=== PATIENT | male | born 1960 | race Caucasian/White ===

== ENCOUNTER 2023-07-13 09:18 | Observation (INO) | payer BC, SELFPAY ==
[2023-07-13] VITALS (7 sets, daily range): BP systolic 134–170; BP diastolic 86–96; PULSE 87–117; RESP 16–22; TEMP 36.1–36.6; O2SAT 96–100; BMI 24.4
--- NOTE | ~2023-07-13 | US_ITS ---
EXAMINATION: US paracentesis abd w/image DATE: 07/14/2023 11:26 INDICATION: Ascites. TECHNIQUE: The procedure and its risks, benefits, and alternatives were discussed with the patient. P otential risks discussed included bleeding and infection. The skin was prepped and draped in sterile fashion. 1% lidocaine was used for local anesthesia. Under ultrasound guidance, a 5 Fr catheter with trochar was advanced into the ascites in the left lower quadrant. Fluid was aspirated. The catheter w as removed, and a dressing was applied. There were no immediate complications. FINDINGS: Ultrasound images demonstrate ascites and the catheter within the fluid. IMPRESSION: 1. Successful ultrasound-guided paracentesis yielding 2150 mL of cloudy red fluid. Reviewed, dictated and finalized at location A. TATION TECHNICIAN IMPRESSION: 1. Successful ultrasound-guided paracentesis yielding 2150 mL of cloudy red fl uid.
--- NOTE | ~2023-07-13 | CT_ITS ---
EXAMINATION: CT abdomen pelvis w con DATE: 07/13/2023 10:25 INDICATION: Lower abdominal pain, bloating, constipation TECHNIQUE: Computed tomography (CT) of the abdomen and pelvis was performed with 100 CC Omnipaque 350 intravenous contrast. Automated exposure control and iterative reconstruction technique were employe d. Exam dose: 523.36 mGy-cm total exam DLP. COMPARISON: None. FINDINGS: Bilateral hyperinflation consistent with COPD. Normal heart size. No pericardial or pleural effusion. There is prominent ascites. Peritoneal metastases are noted in addition to omental caking consistent with omental metastases. There is a very large mass in the sigmoid colon with some colonic stricture, with a prominent amount of fecal material in the colon proximal to this area. The findings are most consistent with sigmoid c olon cancer with peritoneal and omental metastases and malignant ascites. There are some impressions upon the liver likely due to peritoneal implants. No apparent hepatic mass lesion is evident. The gallbladder is present. No bile duct or pancreatic duct dilatation. No pancreatic mass lesion or calcification. Normal splenic size. Normal morphology of the adrenal glands. Small lower pole anterior right renal cyst. The kidneys are otherwise unremarkable. No urinary tract calculus or hydroureteronephrosis. His atherosclerotic calcification but normal caliber of the abdominal aorta. No periaortic or aortoca facundo or pelvic lymphadenopathy is noted. IMPRESSION: Prominent sigmoid colon mass stricture suggestive of sigmoid colon cancer, with peritone al and omental metastases and prominent ascites Dr. Meyers telephoned the report on July 13, 2023 at 1100 hours to emergency room Physician Tony Cervantes Reviewed, dictated and finalized at Location A. Reviewed, dictated and finalized at location B. RAL HANDLING SUPERVISOR IMPRESSION: Prominent sigmoid colon mass stricture suggestive of sigmoid colon cancer, with peritoneal and omental metastases and prominent ascites Dr. Meyers telephoned the report on July 13, 2023 at 1100 hours to emergency room Physician Assistant Cervantes
[2023-07-13 09:40] LABS: Basophils Percent Auto 0.3 % (0.2-1.2); Eosinophils Percent Auto 0.5 % (0-4.4); Hematocrit 36.2 % (42.0-52.0); Hemoglobin 11.4 g/dL (14.0-18.0); Immature Granulocyte Absolute 0.02 K/mm3 (0.00-0.031); Immature Granulocyte Percent A 0.3 % (0-0.5); Lymphocytes Absolute Auto 1.09 K/mm3 (0.9-3.2); Lymphocytes Percent Auto 16.4 % (18.3-44.2); Mean Corpuscular HGB Conc 31.5 g/dl (32-36); Mean Corpuscular Hemoglobin 25.6 pg (26-34); Mean Corpuscular Volume 81.3 fl (80-100); Mean Platelet Volume 8.2 fl (7.4-10.4); Monocytes Absolute Auto 0.5 K/mm3 (0.1-0.6); Monocytes Percent Auto 7.2 % (2.6-8.5); Neutrophils Percent Auto 75.3 % (45.5-73.1); Platelet Count Result 410 k/mm3 (150-375); Red Blood Count 4.45 M/mm3 (4.6-6.20); Red Cell Distribution Width 15.6 % (11.5-14.5); White Blood Count 6.6 K/mm3 (4.5-10.0)
[2023-07-13 09:54] LABS: Alanine Aminotransferase 16 U/L (6-50); Albumin Level 3.7 g/dL (3.5-5.1); Alkaline Phosphatase 70 U/L (38-126); Anion Gap 7 mmol/L (8-16); Aspartate Amino Transferase 22 U/L (17-59); Bilirubin,Total 0.3 mg/dL (0.2-1.3); Blood Urea Nitrogen 7 mg/dL (9-20); Calcium 9.1 mg/dL (8.4-10.2); Carbon Dioxide 28 mmol/L (22-30); Chloride 100 mmol/L (98-107); Estimated CRCL calculation 105 ml/min; Estimated Glomerular Filt Rate > 60; Glucose 175 mg/dL (65-110); Lipase 53 U/L (23-300); Potassium 3.1 mmol/L (3.4-5.0); Sodium 135 mmol/L (137-145)
--- NOTE | 2023-07-13 10:00 | ED.ABDPAIN ---
HPI - Abdominal Pain General Chief Complaint: Abdominal Pain <LAUREL Andrews Last Filed: 07/13/23 13:15> Stated Complaint: abd pain <LAUREL Andrews Last Filed: 07/13/23 13:15> Time Seen by Provider: 07/13/23 09:34 <Yolande Soliz PA-C - Last Filed: 07/13/23 13:15> Source: patient <LAUREL Andrews Last Filed: 07/13/23 13:15> Mode of arrival: ambulatory <LAUREL Andrews Last Filed: 07/13/23 13:15> Limitations: no limitations <LAUREL Andrews Last Filed: 07/13/23 13:15> History of Present Illness HPI narrative: Patient is a 63-year-old male who presents the ED with report of lower abdominal pain. Patient reports pain has been ongoing and intermittent over the last 1 week, became significantly worse last night. Pain present throughout his lower abdomen. No significant aggravating or alleviating factors. He has never had pain like this before. States abdomen began feeling bloated and distended yesterday. Patient denies nausea, vomiting, fevers, urinary complaints. He does admit to recent bowel changes, reporting small bouts of diarrhea/thin stools over the last couple of days, but overall feels constipated. Denies rectal bleeding, melena. Patient has never had a colonoscopy. Denies previous history of diverticulitis. <Yolande Soliz PA-C - Last Filed: 07/13/23 13:15> Related Data Home Medications: Home Medications Medication Instructions Recorded Confirmed B-complex with vitamin C 1 tablet PO DAILY 07/13/23 07/13/23 <LAUREL Andrews Last Filed: 07/13/23 13:15> Allergies/Adverse Reactions: Allergies Allergy/AdvReac Type Severity Reaction Status Date / Time No Known Allergies Allergy Verified 07/13/23 09:22 <LAUREL Andrews Last Filed: 07/13/23 13:15> Review of Systems Review of Systems: CONSTITUTIONAL: Denies fever, chills, or sweats. GASTROINTESTINAL: See HPI. GENITOURINARY: Denies dysuria or hematuria. <Yolande Soliz PA-C - Last Filed: 07/13/23 13:15> All systems reviewed & are unremarkable except as noted in HPI and below <Yolande Soliz PA-C - Last Filed: 07/13/23 13:15> PMFSH Past Medical History Medical History: Medical History (Updated 07/13/23 @ 16:49 by Jaylen Larose MD) Bowel habit changes Lower abdominal pain No pertinent past medical history <LAUREL Andrews Last Filed: 07/13/23 13:15> Surgical History Surgical History: Surgical History History of inguinal hernia repair As an infant <Yolande Soliz PA-C - Last Filed: 07/13/23 13:15> Social History Social History: Social History Social History: Surrogate medical decision maker: Orin Christensen, niece. Code status: Full code. Smoking packs per day: 0.25 Smoking cigarettes per day: 5.0 Smoking status: Light tobacco smoker Tobacco type: cigarettes Alcohol intake: never Substance use: never Do You Feel Safe in your Home?: Yes Lack of Transportation: No Lack of Food: Never True Current Housing: I Have Housing Concerned About Future Housing: No Difficulty Paying Gas/Electric Bills: No Difficulty Paying for Meds: No Currently Unemployed: No Education: High School Diploma/GED Difficulty w/ Childcare or Family Care: No Spiritual care concerns: No <LAUREL Andrews Last Filed: 07/13/23 13:15> Exam Narrative: GENERAL: Appears older than stated age appearing, well-nourished, non-toxic, in no acute distress. HEAD: Normocephalic, atraumatic. RESPIRATORY: Airway patent, respirations nonlabored. Clear to auscultation bilaterally, no rales, rhonchi, wheezing. CARDIOVASCULAR: Tachycardic with regular rhythm without murmurs, rubs, or gallops. ABDOMINAL: Abdo
[2023-07-13] MEDS: SODIUM CHLORIDE 0.9% IV 1,000 ML 999 ML IV CONT (10:04)
[2023-07-13] MEDS: POTASSIUM CHLORIDE 20 MEQ ER TABLET 40 MEQ PO (10:21)
[2023-07-13 10:49] LABS: Lactic Acid Reflex 1.8 mmol/L (0.7-2.0); Magnesium 1.9 mg/dL (1.6-2.3)
[2023-07-13 10:54] LABS: Appearance Urine Clear (Clear); Bilirubin Urine Negative (Negative); Blood Urine Negative (Negative); Color Urine Yellow (Yellow); Glucose Urine UA Negative (Negative); Ketones Urine Negative (Negative); Leukocyte Esterase Ur Negative LEU/UL (Negative); Nitrate Urine Negative (Negative); Protein Urine Negative (Negative); Specific Grav Ur 1.008 (1.001-1.035); Urobilinogen Urine 0.2 mg/dL (<2.0)
[2023-07-13 10:58] LABS: Add Urine Microscopic? NO
--- NOTE | 2023-07-13 12:11 | PC.NURSE ---
Cari from [facility] called informing this RN anticipating time of procedure approx 1500
--- NOTE | 2023-07-13 13:03 | PM.IMHP ---
H&P: HPI History of Present Illness Date/Time: 07/13/23 13:05 Chief Complaint: Abdominal pain. Narrative: This is a pleasant 63-year-old male with no reported medical history who presented to the emergency department for evaluation of abdominal. The patient provides the following history. He reports lower abdominal pain for about one weeks duration, worse since last night. He has bloating and is constipated though the last few days he has passed loose stools but in small amounts. He denies nausea, vomiting, rectal bleeding, dysuria, hematuria, belching, indigestion, chest pain, pleuritic pain, palpitations, shortness of breath, edema, and fevers. On arrival to triage he was afebrile with stable blood pressures. He has lost maybe 12 lb in the last year. The weight has come off slowly and has not been recent or drastic. He was tachycardic on arrival but that has improved. Labs were significant for a hemoglobin of 11.4 sodium 135, potassium 3.1, and a glucose of 175. Urinalysis was unremarkable. CT scan of the abdomen and pelvis showed a prominent sigmoid colon mass with stricture suggestive of colon cancer with peritoneal and omental metastases and prominent ascites. The patient has never had a colonoscopy. No known family history of colon cancer. GI, surgery, and Oncology specialties have been consulted and he is being admitted in this setting. Review of Systems Review of Systems: Twelve systems were reviewed and are negative except for as per HPI. [facility] Past Medical History Medical History (Updated 07/13/23 @ 21:58 by Cielo Contreras PA-C) No pertinent past medical history Surgical History Surgical History History of inguinal hernia repair As an infant Social History Social History (Updated 07/13/23 @ 21:59 by Cielo Contreras PA-C) Social History: Surrogate medical decision maker: Orin Christensen, niece. Code status: Full code. 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 Spiritual care concerns: No Meds Home Medications and Allergies Home Medications Medication Instructions Recorded Confirmed Type B-complex with vitamin C 1 tablet PO DAILY 07/13/23 07/13/23 History Allergies Allergy/AdvReac Type Severity Reaction Status Date / Time No Known Allergies Allergy Verified 07/13/23 09:22 Vital Signs Vital Signs - 24 hr 07/13/23 09:20 07/13/23 09:35 07/13/23 09:45 Temperature 97 F L Pulse Rate 114 H 113 H 116 H Respiratory Rate 16 16 22 H Blood Pressure 170/86 H Pulse Oximetry 100 100 99 07/13/23 10:00 07/13/23 11:24 Temperature Pulse Rate 117 H 105 H Respiratory Rate 18 20 Blood Pressure 134/89 Pulse Oximetry 100 100 Exam Narrative: General: Well-developed, nontoxic-appearing male sitting up beside the bed. Weight: 84 kg. BMI: 24.4. HEENT: PERRL, EOMI. Sclera anicteric. Oral mucosa moist. Neck: Supple. Respiratory: Lungs are clear to auscultation bilaterally. Cardiovascular: Regular rate and rhythm with S1-S2. Gastrointestinal: Abdomen is slightly distended with positive and occasional high-pitched bowel sounds. Tympanic to percussion. no tenderness to palpation. Rectal exam not performed. Skin: Warm and dry. No rash or lesions on limited exam. Extremities: No cyanosis, clubbing, or edema. Radial and pedal pulses intact. Neurological: Alert. Cranial n
[2023-07-13] MEDS: SODIUM CHLORIDE 0.9% IV 1,000 ML 100 ML IV CONT (14:09)
--- NOTE | 2023-07-13 14:53 | PM.CNGS ---
Assessment and Plan Assessment and plan (1) Colonic mass: Code(s): K63.89 - Other specified diseases of intestine Status: Acute Assessment and Plan: Patient presents with likely metastatic colon cancer with CT evidence of a sigmoid colon mass with stricturing and evidence of peritoneal and omental metastases with malignant ascites. He does not appear to be completely obstructed and is still having bowel function. Would agree with GI consultation to see if he can tolerate a bowel prep and hopefully get a colonoscopy. Oncology has also been consulted. Given the metastatic spread noted on CT with likely peritoneal carcinomatosis, surgery would be reserved for perforation or a high-grade obstruction. Discussed with the patient that if he developed signs of perforation or complete obstruction, then we would consider a diverting colostomy, but this would delay initiation of chemotherapy. Paracentesis has been ordered and planned for tomorrow. Will await GI recommendations and continue to follow along closely. 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 Cavazos. History of Present Illness Consult details Consult date: 07/13/23 Reason for consult: other (Sigmoid mass with stricture and CT evidence of metastasis) Requesting physician: Yolande Soliz PA-C Narrative: This is a 63-year-old man who presented to the ER with complaints of bloating and abdominal pain. He admits to not seeing a medical provider in about 40 years. He has never had a colonoscopy. He reports a change in his bowels a few weeks ago. He began having diarrhea and noticed only small loose or liquid stools. This was intermittent, and recently became more persistent. He also felt his stools decreased in size over time. The last 2 days, he developed significant bloating and abdominal distension. He reports discomfort due to the bloating, but also noticed some left lower quadrant abdominal pain. He admits to having this pain intermittently for months, but this was mild. This pain became more persistent over the last 2 days. He denies any nausea or vomiting. He discussed his symptoms with his niece, who is a nurse, who recommended he go to the ER for evaluation. Labs in the ER were significant for hemoglobin 11.4, hematocrit 36.2, potassium 3.1, glucose 175. CT scan of the abdomen and pelvis showed a prominent sigmoid colon mass with stricture suggestive of sigmoid colon cancer with peritoneal and omental metastasis and prominent ascites. He has been made NPO. He was admitted to the hospitalist service. Paracentesis was ordered, which per nursing this will not be done until tomorrow. Our service has been consulted for the sigmoid colon mass. GI and Oncology have also been consulted. He is now seen on the medical floor. He reports having some left lower quadrant abdominal pain that is very mild. He feels less bloated today than yesterday. He has not eaten since yesterday. He did have a small loose bowel movement early this morning and has passed some flatus today. With further questioning, he admits to having about a 12 lb unintentional weight loss in the past 6 months to a year. He has notice some fatigue in the past week as well. Denies any blood in his stools. Review of Systems Review of Systems: All systems
--- NOTE | 2023-07-13 16:44 | WPDGICN ---
Assessment and Plan Assessment and plan (1) Colonic mass: Code(s): K63.89 - Other specified diseases of intestine Status: Acute Assessment and Plan: unfortunately it seems he has metastatic colon cancer he is agreeable to have colonoscopy, will give bowel prep- he may not tolerate all prep I do not think that he is completely obstructed as he is still having bowel function and denies nausea. Will assess tomorrow degree of stricture, we can always proceed with stent only if significant stricture. 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 is a 63 year old male with no major chronic medical problems however has not seen a medical provider for years or ever had a colonoscopy. For about a month noted change in bowel habits with more frequent loose stools than usual but last few days noted even less amount of stool, also has been having more bloating for last 2 days after eating, denies nausea. Also noticed some left lower quadrant abdominal pain.? He admits to having this pain intermittently for months, but this was mild, lost about 15 lb last few months.?Labs in the ER were significant for hemoglobin 11.4, hematocrit 36.2, potassium 3.1, glucose 175.? CT scan of the abdomen and pelvis showed a prominent sigmoid colon mass with stricture suggestive of sigmoid colon cancer with peritoneal and omental metastasis and prominent ascites. Review of Systems Constitutional: Comments: weight loss Eyes: Eyes: Denies blurry vision ENT: Reports Normal hearing present Cardiovascular: Cardiovascular: Denies chest pain Respiratory: Respiratory: Denies cough Gastrointestinal: Gastrointestinal: Reports abdominal pain Genitourinary: Genitourinary: Denies urinary incontinence Musculoskeletal: Musculoskeletal: Denies neck pain Integumentary/Breasts: Skin/Breast: Denies rash Neurologic: Denies Abnormal speech present Psychiatric: Psychiatric: Denies behavioral changes [facility] Past Medical History Medical History (Updated 07/13/23 @ 16:49 by Jaylen Larose MD) Bowel habit changes Lower abdominal pain No pertinent past medical history Surgical History Surgical History History of inguinal hernia repair As an Social History Social History Social History: Surrogate medical decision maker: Orin Christensen, niece. Code status: Full code. Smoking packs per day: 0.25 Smoking cigarettes per day: 5.0 Smoking status: Light tobacco smoker Tobacco type: cigarettes Alcohol intake: never Substance use: never Do You Feel Safe in your Home?: Yes Lack of Transportation: No Lack of Food: Never True Current Housing: I Have Housing Concerned About Future Housing: No Difficulty Paying Gas/Electric Bills: No Difficulty Paying for Meds: No Currently Unemployed: No Education: High Sc
[2023-07-13] MEDS: BISACODYL 5 MG TABLET EC 20 MG PO (18:19)
[2023-07-13] MEDS: polyethylene glycoL 3350 238 GM BOTTLE PO (18:19)
--- NOTE | 2023-07-13 22:30 | ADMGEN ---
This patient, Rudy Mejia Jr., was admitted to Medical Room 254-01 @ approx. 1235 on 07/13/23. Patient/family oriented to hospital policies and general routines including ID bracelet, bed and alarms, visiting hours, pain management, procedures, bathroom and other care routines, personal items, smoking policy, room service/diet, and visiting hours. Information on how to activate the Rapid Response Team has been discussed. Patient/Family are encouraged to report perceived risks to care and to ask questions if they do not understand what they are told or what they should do.
[2023-07-14] VITALS (7 sets, daily range): BP systolic 94–141; BP diastolic 68–94; PULSE 74–87; RESP 18–26; TEMP 36.4–36.8; O2SAT 97–100
[2023-07-14] MEDS: MAGNESIUM CITRATE 300 ML BTL PO (05:10)
[2023-07-14 06:23] LABS: Hematocrit 36.4 % (42.0-52.0); Hemoglobin 11.4 g/dL (14.0-18.0); Mean Corpuscular HGB Conc 31.3 g/dl (32-36); Mean Corpuscular Hemoglobin 25.3 pg (26-34); Mean Corpuscular Volume 80.9 fl (80-100); Mean Platelet Volume 8.3 fl (7.4-10.4); Platelet Count Result 413 k/mm3 (150-375); Red Cell Distribution Width 15.7 % (11.5-14.5); White Blood Count 5.3 K/mm3 (4.5-10.0)
[2023-07-14 06:38] LABS: Anion Gap 8 mmol/L (8-16); Blood Urea Nitrogen 5 mg/dL (9-20); Calcium 9.3 mg/dL (8.4-10.2); Carbon Dioxide 25 mmol/L (22-30); Chloride 104 mmol/L (98-107); Estimated CRCL calculation 121 ml/min; Estimated Glomerular Filt Rate > 60; Glucose 105 mg/dL (65-110); Magnesium 1.9 mg/dL (1.6-2.3); Potassium 3.7 mmol/L (3.4-5.0); Sodium 137 mmol/L (137-145)
[2023-07-14 06:55] LABS: Iron 38 ug/dL (49-181)
[2023-07-14 07:04] LABS: Percent Iron Saturation 16 % (20-50)
[2023-07-14 07:05] LABS: Carcinoembryonic Antigen 22.2 ng/mL (0.0-3.0)
[2023-07-14 07:47] LABS: Vitamin B12 > 1000.0 pg/mL (239-931)
--- NOTE | 2023-07-14 09:08 | PDONCCN ---
HPI - Date of Consult Date/Time: 07/14/23 09:08 Requesting Physician: LINDA Doshi Primary Care Provider: INSTRUMENT ADJUSTER PHYSICIAN - Consult Narrative Reason for consult: Colon Cancer Narrative: Rudy Mejia Jr. is a 63 year old male with no past medical history. He states he has not gone to the doctor in over 40 years. He presented to the ED with abdominal distention, bloating, and umbilicus protrusion. He has been having lower abdominal discomfort and a month of diarrhea. Thursday he has the worst discomfort and presented to the ED. He has never had a colonoscopy. He denies any blood in his stool. Denies nausea. States he has a good appetite. He has lost 12lb in the last year but his weight typically fluctuates from summer to winter based on activity level. He smokes 1/2 pack a day. He has a distant history of heavy alcohol use. He denies any previous history of malignancy and denies immediate family history of cancer. He reports some shortness of breath. He endorses a heavy meat and potato diet. CT scan shows sigmoid colon mass w/ stricture. GI and surgery are following. He should be receiving a colonoscopy w/ a biopsy today. Review of Systems - Review of Systems All systems reviewed & are unremarkable except as noted in HPI and bel - Neurologic Reports system reviewed and no additional complaints, except as documented, Reports hearing normal, Denies abnormal speech, Denies behavioral changes [facility] Medical History: Medical History (Last Updated 07/13/23 @ 21:58 by Cielo Contreras PA-C) No pertinent past medical history Surgical History: Surgical History (Last Reviewed 07/13/23 @ 21:58 by Cielo Contreras PA-C) History of inguinal hernia repair As an infant - Social History Social History: Social History (Last Updated 07/13/23 @ 21:59 by Cielo Contreras PA-C) Alcohol Use: Alcohol intake: never Substance Use: Substance use: never Others: Spiritual care concerns: No Smoking Status: Smoking status: Light tobacco smoker Tobacco type: cigarettes Smoking Pack-years: Smoking packs per day: 0.25 Smoking cigarettes per day: 5.0 Social Determinants of Health: Do You Feel Safe in your Home?: Yes Has the Lack of Transportation Kept You From Medical Appointments or From Getting Medications?: No Within the Past 12 Months, Were You Worried Whether Your Food Would Run Out Before You Got Money to Buy More?: Never True What is Your Housing Situation Today?: I Have Housing Are You Worried That in the Next 2 Months, You May Not Have Your Own Housing to Live In?: No Do You Have Trouble Paying Your Heating Or Electricity Bill?: No Do You Have Trouble Paying For Medicines?: No Are You Currently Unemployed and Looking for Work?: No Highest Level of Education Completed: High School Diploma/GED Do You Have Trouble With Childcare or the Care of a Family Member?: No Exam - General Pt is sitting in the chair, comfortably, in no acute distress - Vital Signs Vital Signs - 24 hr 07/13/23 09:20 07/13/23 09:35 07/13/23 09:45 Temperature 36.1 C L Pulse Rate 114 H 113 H 116 H Respiratory Rate 16 16 22 H Blood Pressure 170/86 H Pulse Oximetry 100 100 99 Oxygen Delivery 07/13/23 10:00 07/13/23 11:24 07/13/23 14:00 Temperature Pulse Rate 117 H 105 H Respiratory Rate 18 20 Blood Pressure 134/89 Pulse Oximetry 100 100 Oxygen Delivery Room Air 07/13/23 12:35 07/13/23 19:31 07/13/23 20:44 Temperature 36.6 C 36.4 C L Pulse Rate 104 H 87 Respiratory Rate 20 18 Blood Pressure 151/96 H 140/95 H Pulse Oximetry 100 96 Oxygen Delivery Room Air 07/14/23 03:57 Temperature 36.4 C L Pulse Rate 82 Respiratory Rate 18 Blood Pressure 141/94 H Pulse Oximetry 97 Oxygen Delivery - Exam HEENT: PERRLA, mucous membranes moist and pink Neck: supple. No: lymphadenopathy Lungs: clear to auscultati
[2023-07-14 09:09] LABS: INR 1.1; Partial Thromboplastin Time 33.8 SECONDS (22.3-36.8); Prothrombin Time 14.2 Seconds (11.1-14.7)
--- NOTE | 2023-07-14 10:42 | PM.IMPN ---
Progress Note: A&P Assessment and Plan (1) Colonic mass: Code(s): K63.89 - Other specified diseases of intestine Status: Acute Assessment and Plan: As evidenced by CT scan of abdomen. There is concern for Metastasis to the peritoneum and omentum. There is omental caking identified w/very large mass in sigmoid colon causing some colonic stricture. Pt has been consulted on by Oncology and they will follow up with pt as outpt to go over results of biopsies and to develop further POC. Colonoscopy and Paracentesis scheduled for today for further evaluation. (2) Colonic stricture: Code(s): K56.699 - Other intestinal obstruction unspecified as to partial versus complete obstruction Status: Acute Assessment and Plan: Secondary to #1. general surgery did evaluate and will be following should the pt require a diverting colostomy or tumor debulking. (3) Ascites: Qualifiers: Ascites type: other type Qualified Code(s): R18.8 - Other ascites Code(s): R18.8 - Other ascites Status: Acute Assessment and Plan: Secondary to metastatic disease. Paracentesis to be performed today. (4) Hypokalemia: Code(s): E87.6 - Hypokalemia Status: Resolved Assessment and Plan: Potassium this AM is normal at 3.7. (5) Hyperglycemia: Code(s): R73.9 - Hyperglycemia, unspecified Status: Resolved Assessment and Plan: Fasting glucose this AM is 105 A1C is 6.0. (6) Tachycardia: Code(s): R00.0 - Tachycardia, unspecified Status: Resolved Assessment and Plan: Suspect due to mild dehydration. Now resolved. Time Spent With Patient Time with patient: 25 - 35 minutes Subjective Date/time seen: 07/14/23 0840 Interval history: This pt was examined this AM at the bedside in interval assessment after being admitted to the hospital with concerns of a metastatic process in the colon that was visualized on CT scan when he presented to the ER with abdominal pain and bloating. This pt has been without any medical care for 40+ years as he stated he was never sick and he did not receive routine medical screening and physicals. He is a residential smoker and denies any other acute or chronic history. He was admitted and GI as well as General Surgery and Oncology have consulted. Pt. will have colonoscopy today by GI to further assess the mass and to obtain a biopsy of the area, and General Sgy advised that they would only be available for intervention if the pt requires a diverting colostomy, de-bulking, etc. Oncology will follow up with pt in the outpt setting to review the results of the pathology and continue care. Pt. denies any pain for me this AM and he denies any other acute complaints such as Dyspnea, CP, N/V/D and states to me that he feels fine and everyone else acts like I'm dying. Pt's CEA has returned elevated at 22.2. CBC and CMP are unremarkable. He is having Colonoscopy today as well as Paracentesis. Review of Systems Review of Systems: All systems reviewed & are unremarkable except as noted in HPI and below Exam Narrative: General: Well-developed, nontoxic-appearing male sitting up beside the bed in no acute distress at this time. HEENT: PERRL, EOMI. Sclera anicteric. Dry oral mucosa. Neck: Supple. FROM present. Respiratory: Lungs are clear to auscultation bilaterally with a prolonged expiratory phase present. Cardiovascular: Regular rate and rhythm with S1-S2. No m,r,g,h or displacement of PMI. Gastrointestinal: Abdomen is slightly distended with positive bowel sounds. No TTP Skin: Warm and dry. No rash or lesions on limited exam. Extremities: No cyanosis, clubbing, or edema. Radial and pedal pulses intact. Neurological: Alert. Cranial nerves 2-12 are grossly intact. No gross focal deficits Psychiatric: Cooperative but defensive in belief that he has Cancer. Objective Data Vital Signs Vital Signs: Vital S
[2023-07-14 12:43] LABS: Source Peritoneal Fluid Peritoneal Fluid
[2023-07-14 12:44] LABS: Appearance Peritoneal Fluid Cloudy (Clear); Color Peritoneal Fluid Brown (Colorless); Eosinophils Peritoneal Fluid 2 %; Lymphocytes Peritoneal Fluid 66 %; Macrophages Peritoneal Fluid 23 %; Monocytes Peritoneal Fluid 5 %; Neutrophils Peritoneal Fluid 4 % (0-25); Nucleated Cells Peritoneal Flu 934 /uL (0-500); RBC Peritoneal Fluid 6000 /uL (0-100000)
[2023-07-14] MEDS: LACTATED RINGERS 1,000 ML 150 ML IV CONT (13:00)
--- NOTE | 2023-07-14 13:02 | WPDANESEPPF ---
Anes - Initial Pre Proc Eval Procedure: Operation Date: 07/14/23 14:00 Proposed Procedures p Colonoscopy - Jaylen Larose MD Date/Time: 07/14/23 13:02 Surgeon: LINDA Doshi Pre Op Diagnosis: Colon Mass W Stricture/Abd Ascites/Hypokalemia Patient Data Age: 63 Gender: M Height: 1.85 m Weight: 81.4 kg Last Vital Signs Temp 97.5 F L 07/14/23 12:40 Pulse 87 07/14/23 12:40 Resp 18 07/14/23 12:40 BP 141/86 H 07/14/23 12:40 Pulse Ox 98 07/14/23 12:40 O2 Del Method Room Air 07/14/23 12:40 Allergies Allergy/AdvReac Type Severity Reaction Status Date / Time No Known Allergies Allergy Verified 07/14/23 12:51 Home Medications Medication Instructions Recorded Confirmed Type B-complex with vitamin C 1 tablet PO DAILY 07/13/23 07/14/23 History Laboratory Tests 07/13/23 07/14/23 07/14/23 12:11 05:46 05:47 WBC 5.3 K/mm3 (4.5-10.0) RBC 4.50 L M/mm3 (4.6-6.20) Hgb 11.4 L g/dL (14.0-18.0) Hct 36.4 L % (42.0-52.0) MCV 80.9 fl (80-100) MCH 25.3 L pg (26-34) MCHC 31.3 L g/dl (32-36) RDW 15.7 H % (11.5-14.5) Plt Count 413 H k/mm3 (150-375) MPV 8.3 fl (7.4-10.4) PT INR APTT Sodium 137 mmol/L (137-145) Potassium 3.7 mmol/L (3.4-5.0) Chloride 104 mmol/L (98-107) Carbon Dioxide 25 mmol/L (22-30) Anion Gap 8 mmol/L (8-16) BUN 5 L mg/dL (9-20) Creatinine 0.60 L mg/dL (0.7-1.3) Estim Creat Clear Calc 121 ml/min Estimated GFR > 60 (59 - ) Glucose 105 mg/dL (65-110) Hemoglobin A1c 6.0 H % (<5.7) Calcium 9.3 mg/dL (8.4-10.2) Magnesium 1.9 mg/dL (1.6-2.3) Iron 38 L ug/dL (49-181) TIBC 245 L ug/dL (265-497) % Saturation 16 L % (20-50) Maya Transferrin Receptr Pending Ferritin 220.00 ng/mL (11.1-264) Carcinoembryonic Ag 22.2 H ng/mL (0.0-3.0) Vitamin B12 > 1000.0 H pg/mL (239-931) Methylmalonic Acid Pending Folate 4.0 ng/mL (2.76->20) TSH (Reflex) 3.390 uIU/mL (0.465-4.68) Peritoneal Source Peritoneal Color Peritoneal Appearance Peritoneal RBC Periton Nuc Cells Periton Neutrophils Periton Lymphocytes Peritoneal Monocytes Peritoneal Eosinophils Periton Macrophages Peritoneal Tot Protein Peritoneal LDH Peritoneal Glucose Peritoneal Amylase Antibody Screen Negative 07/14/23 07/14/23 07/14/23 08:40 11:16 11:17 WBC RBC Hgb Hct MCV MCH MCHC RDW Plt Count MPV PT 14.2 Seconds (11.1-14.7) INR 1.1 APTT 33.8 SECONDS (22.3-36.8) Sodium Potassium Chloride Carbon Dioxide Anion Gap BUN Creatinine Estim Creat Clear Calc Estimated GFR Glucose Hemoglobin A1c Calcium Magnesium Iron TIBC % Saturation Maya Transferrin Receptr Ferritin Carcinoembryonic Ag Vitamin B12 Methylmalonic Acid Folate TSH (Reflex) Peritoneal Source Peritoneal fluid Peritoneal Color Brown (Colorless) Peritoneal Appearance Cloudy A (Clear) Peritoneal RBC 6000 /uL ([id number]) Periton Nuc Cells 934 H /uL (0-500) Ashley
[2023-07-14] MEDS: FERROUS SULFATE 325 MG TABLET DR PO (17:19)
[2023-07-15 04:03] VITALS: BP 129/87; PULSE 71; RESP 20; TEMP 36.4; O2SAT 96
[2023-07-15 05:28] LABS: Basophils Percent Auto 0.4 % (0.2-1.2); Eosinophils Absolute Auto 0.1 K/mm3 (0-0.3); Eosinophils Percent Auto 1.3 % (0-4.4); Hematocrit 30.9 % (42.0-52.0); Hemoglobin 9.8 g/dL (14.0-18.0); Immature Granulocyte Absolute 0.02 K/mm3 (0.00-0.031); Immature Granulocyte Percent A 0.4 % (0-0.5); Lymphocytes Absolute Auto 0.85 K/mm3 (0.9-3.2); Lymphocytes Percent Auto 15.5 % (18.3-44.2); Mean Corpuscular HGB Conc 31.7 g/dl (32-36); Mean Corpuscular Hemoglobin 25.5 pg (26-34); Mean Corpuscular Volume 80.5 fl (80-100); Mean Platelet Volume 8.2 fl (7.4-10.4); Monocytes Absolute Auto 0.5 K/mm3 (0.1-0.6); Monocytes Percent Auto 8.2 % (2.6-8.5); Neutrophils Absolute Auto 4.1 K/mm3 (1.3-6.7); Neutrophils Percent Auto 74.2 % (45.5-73.1); Platelet Count Result 333 k/mm3 (150-375); Red Blood Count 3.84 M/mm3 (4.6-6.20); Red Cell Distribution Width 15.5 % (11.5-14.5); White Blood Count 5.5 K/mm3 (4.5-10.0)
[2023-07-15 05:43] LABS: Alanine Aminotransferase 11 U/L (6-50); Alkaline Phosphatase 68 U/L (38-126); Anion Gap 3 mmol/L (8-16); Aspartate Amino Transferase 22 U/L (17-59); Bilirubin,Total 0.4 mg/dL (0.2-1.3); Blood Urea Nitrogen 6 mg/dL (9-20); Calcium 8.5 mg/dL (8.4-10.2); Carbon Dioxide 27 mmol/L (22-30); Chloride 103 mmol/L (98-107); Estimated CRCL calculation 121 ml/min; Estimated Glomerular Filt Rate > 60; Glucose 97 mg/dL (65-110); Magnesium 2.3 mg/dL (1.6-2.3); Potassium 3.8 mmol/L (3.4-5.0); Sodium 133 mmol/L (137-145)
--- NOTE | 2023-07-15 08:02 | WPDANESPN ---
Anes - Prog Note Post-Op Date/Time: 07/15/23 08:02 Cardiovascular status: normal Respiratory status: normal Airway patency: baseline Mental status: baseline Post-Op hydration status: normal Vital Signs: Last Vital Signs Temp 36.4 C L 07/15/23 04:03 Pulse 71 07/15/23 04:03 Resp 20 07/15/23 04:03 BP 129/87 07/15/23 04:03 Pulse Ox 96 07/15/23 04:03 O2 Del Method Room Air 07/14/23 20:22 O2 Flow Rate 3 07/14/23 15:02 Pain Score (VAS): 0 I/O: Intake & Output 07/14/23 07/15/23 07/15/23 23:59 07:59 15:59 Intake Total 390 Output Total 3 Balance 387 Laboratory Tests 07/15/23 05:06 07/15/23 05:06 07/14/23 07/14/23 07/14/23 05:46 05:47 08:40 WBC RBC Hgb Hct MCV MCH MCHC RDW Plt Count MPV Immature Gran % (Auto) Neut % (Auto) Lymph % (Auto) [place] % (Auto) Eos % (Auto) Baso % (Auto) Lymph # (Auto) [place] # (Auto) Eos # (Auto) Baso # (Auto) Abs Immat Gran (auto) Absolute Neuts (auto) Absolute Nucleated RBC Nucleated RBC % PT 14.2 INR 1.1 APTT 33.8 Sodium Potassium Chloride Carbon Dioxide Anion Gap BUN Creatinine Estim Creat Clear Calc Estimated GFR Glucose Calcium Magnesium % Saturation 16 L Total Bilirubin AST ALT Alkaline Phosphatase Total Protein Albumin Folate 4.0 Peritoneal Source Peritoneal Color Peritoneal Appearance Peritoneal RBC Periton Nuc Cells Periton Neutrophils Periton Lymphocytes Peritoneal Monocytes Peritoneal Eosinophils Periton Macrophages Peritoneal Tot Protein Peritoneal LDH Peritoneal Glucose Peritoneal Amylase 07/14/23 07/14/23 07/15/23 11:16 11:17 05:06 WBC 5.5 RBC 3.84 L Hgb 9.8 L Hct 30.9 L MCV 80.5 MCH 25.5 L MCHC 31.7 L RDW 15.5 H Plt Count 333 MPV 8.2 Immature Gran % (Auto) 0.4 Neut % (Auto) 74.2 H Lymph % (Auto) 15.5 L [place] % (Auto) 8.2 Eos % (Auto) 1.3 Baso % (Auto) 0.4 Lymph # (Auto) 0.85 L [place] # (Auto) 0.5 Eos # (Auto) 0.1 Baso # (Auto) 0.0 Abs Immat Gran (auto) 0.02 Absolute Neuts (auto) 4.1 Absolute Nucleated RBC 0.0 Nucleated RBC % 0.0 PT INR APTT Sodium 133 L Potassium 3.8 Chloride 103 Carbon Dioxide 27 Anion Gap 3 L BUN 6 L Creatinine 0.60 L Estim Creat Clear Calc 121 Estimated GFR > 60 Glucose 97 Calcium 8.5 Magnesium 2.3 % Saturation Total Bilirubin 0.4 AST 22 ALT 11 Alkaline Phosphatase 68 Total Protein 6.0 L Albumin 3.0 L Folate Peritoneal Source Peritoneal fluid Peritoneal Color Brown Peritoneal Appearance Cloudy A Peritoneal RBC 6000 Periton Nuc Cells 934 H Periton Neutrophils 4 Periton Lymphocytes 66 Peritoneal Monocytes 5 Peritoneal Eosinophils 2 Periton Macrophages 23 Peritoneal Tot Protein Pending Peritoneal LDH Pending Peritoneal Glucose Pending Peritoneal Amylase Pending Post-procedural complaints: none Patient Feedback: Patient satisfied with anesthetic care.
[2023-07-15] MEDS: FERROUS SULFATE 325 MG TABLET DR PO (08:23)
--- NOTE | 2023-07-15 10:34 | PM.PNGS ---
Progress Note: A&P Assessment and Plan (1) Colonic mass: Code(s): K63.89 - Other specified diseases of intestine Status: Acute Assessment and Plan: Awaiting pathology results. Patient does not want to have Port placed until he has received biopsy results and had time to think about treatment options. OK to discharge from surgical standpoint. Will call patient to schedule Port as outpatient, potentially early next week. 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 Wanting to be discharged and await all biopsy results. Exam GI: Inspection: non-distended GI Palp: Yes Soft to palpation, No Tenderness to palpation present (GI) and No Guarding due to palpation present (GI) Auscultation: normal bowel sounds Objective Data Vital Signs Vital Signs: Vital Signs - 24 hr 07/14/23 12:40 07/14/23 14:52 07/14/23 15:02 Temperature 36.4 C L Pulse Rate 87 80 77 Respiratory Rate 18 26 H 23 H Blood Pressure 141/86 H 94/70 L 116/75 Pulse Oximetry 98 100 98 Oxygen Delivery Room Air Simple Face Mask Simple Face Mask Oxygen Flow Rate 6 3 07/14/23 15:12 07/14/23 15:30 07/14/23 20:15 Temperature 36.8 C 36.5 C 36.5 C Pulse Rate 75 78 74 Respiratory Rate 23 H 18 20 Blood Pressure 111/78 100/68 117/79 Pulse Oximetry 99 100 100 Oxygen Delivery Room Air Oxygen Flow Rate 07/14/23 20:22 07/15/23 04:03 07/15/23 08:30 Temperature 36.4 C L Pulse Rate 71 Respiratory Rate 20 Blood Pressure 129/87 Pulse Oximetry 96 Oxygen Delivery Room Air Room Air Oxygen Flow Rate Intake/Output Intake/Output: Intake & Output 07/12/23 07/13/23 07/14/23 07/15/23 23:59 23:59 23:59 23:59 Intake Total 1720 150 390 Output Total 2150 3 Balance 1719 -1999 387 Meds/Results Medications: Active Medications Generic Name Dose Route Start Last Admin Trade Name Freq PRN Reason Stop Dose Admin Acetaminophen 650 mg 07/13/23 13:15 Acetaminophen 325 Mg Tablet PO Q6H PRN Mild Pain (1-3) or Fever Ferrous Sulfate 325 mg 07/14/23 17:00 07/15/23 08:23 Ferrous Sulfate [address] PO 325 mg BID KAT Administration Morphine Sulfate 2 mg 07/13/23 13:15 Morphine Sulfate (*Crx) 2 Mg/Ml Inj IV PUSH Q4H PRN Pain Rated 7-10 Ondansetron HCl 4 mg 07/13/23 12:03 Ondansetron Inj 4 Mg/2 Ml Vial IV PUSH Q4H PRN Nausea Radiology Results: ITS Impressions Abdomen/Pelvis CT 07/13/23 10:40 IMPRESSION: Prominent sigmoid colon mass stricture suggestive of sigmoid colon cancer, with peritoneal and omental metastases and prominent ascites Dr. Meyers telephoned the report on July 13, 2023 at 1100 hours to emergency room Physician Assistant Librarian Helen Paracentesis Ultrasound 07/14/23 11:58 IMPRESSION: 1. Successful ultrasound-guided paracentesis yielding 2150 mL of cloudy red fluid. Labs Labs: Laboratory Results - last 24 hr 07/14/23 07/14/23 07/15/23 05:46 11:17 05:06 WBC 5.5 RBC 3.84 L Hgb 9.8 L Hct 30.9 L MCV 80.5 MCH 25.5 L MCHC 31.7 L RDW 15.5 H Plt Count 333 MPV 8.2 Immature Gran % (Auto) 0.4 Neut % (Auto) 74.2 H Lymph % (Auto) 15.5 L [place] % (Auto) 8.2 Eos % (Auto) 1.3 Baso % (Auto) 0.4 Lymph # (Auto) 0.85 L [place] # (Auto) 0.5 Eos # (Auto) 0.1 Baso # (Auto) 0.0 Abs
--- NOTE | 2023-07-15 11:08 | PM.DS ---
DS: Admitting Diagnosis Discharge Date 07/15/2023 Admitting Diagnosis Colonic mass DS: Discharge Diagnosis Discharge Diagnosis (1) Anemia: Code(s): D64.9 - Anemia, unspecified Status: Acute (2) Colonic mass: Code(s): K63.89 - Other specified diseases of intestine Status: Acute Assessment and Plan: As evidenced by CT scan of abdomen. There is concern for Metastasis to the peritoneum and omentum. There is omental caking identified w/very large mass in sigmoid colon causing some colonic stricture. Pt has been consulted on by Oncology and they will follow up with pt as outpt to go over results of biopsies and to develop further POC. 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 Paracentesis to be performed today. (6) Hypokalemia: Code(s): E87.6 - Hypokalemia Status: Resolved Assessment and Plan: Potassium this AM is normal at 3.8 (7) Colonic stricture: Code(s): K56.699 - Other intestinal obstruction unspecified as to partial versus complete obstruction Status: Acute Assessment and Plan: Secondary to #1. general surgery is by the bedside, recommends port placement that can be scheduled outpatient parent (8) Hyperglycemia: Code(s): R73.9 - Hyperglycemia, unspecified Status: Resolved Assessment and Plan: Fasting glucose this AM 97 A1C is 6.0. (9) Tachycardia: Code(s): R00.0 - Tachycardia, unspecified Status: Resolved Assessment and Plan: Suspect due to mild dehydration. Now resolved. DS: Summary Hospital Course Reason for hospitalization: 63-year-old male with no reported medical history who presented to the emergency department for evaluation of abdominal. Hospital Course: Patient reported lower abdominal pain for about one weeks duration, which had increased upon arrival. He complained bloating constipation occurring over the past few days. He stated over the last few days he had passed loose stools but in small amounts. He denies nausea, vomiting, rectal bleeding, dysuria, hematuria, belching, indigestion, chest pain, pleuritic pain, palpitations, shortness of breath, edema, and fevers. On arrival to triage he was afebrile with stable blood pressures. He has lost maybe 12 lb in the last year. The weight has come off slowly and has not been recent or drastic. He was tachycardic on arrival but that has improved. Labs were significant for a hemoglobin of 11.4 sodium 135, potassium 3.1, and a glucose of 175. Urinalysis was unremarkable. CT scan of the abdomen and pelvis showed a prominent sigmoid colon mass with stricture suggestive of colon cancer with peritoneal and omental metastases and prominent ascites. The patient has never had a colonoscopy. No known family history of colon cancer. GI, surgery, and Oncology specialties have been consulted and he is being admitted in this setting. Interval Hx: Subjective Date/time seen: 07/14/23? 0840 Interval history: This pt was examined this AM at the bedside in interval assessment after being admitted to the hospital with concerns of a metastatic process in the colon that was visualized on CT scan when he presented to the ER with abdominal pain and bloating. This pt has been without any medical care for 40+ years as he stated he was never sick and he did not receive routine medical screening and physicals. 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 He was admitted and GI as well a
--- NOTE | 2023-07-15 13:08 | WPDGIPROGNO ---
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 - Secondary malignant neoplasm of retroperitoneum and peritoneum Status: Acute (4) Ascites: Qualifiers: Ascites type: other type Qualified Code(s): R18.8 - Other ascites Code(s): R18.8 - Other ascites Status: Acute Assessment and Plan: s/p paracentesis, no sbp pending cytology feeling better after paracentesis (5) Lower abdominal pain: Code(s): R10.30 - Lower abdominal pain, unspecified Status: Acute (6) Bowel habit changes: Code(s): R19.4 - Change in bowel habit Status: Acute (7) Anemia: Code(s): D64.9 - Anemia, unspecified Status: Acute Subjective Date/time seen: 07/15/23 13:08 Interval history: sigmoidoscopy noted large sigmoid mass with partial obstruction he ate regular food and feeling ok Review of Systems Review of Systems: All systems reviewed & are unremarkable except as noted in HPI and below Exam Const: General: comfortable and no acute distress HENMT: Face/Nose/Sinus: Normal nares present Eyes: General: appearance normal, both eyes and all related structures Neck: Neck: supple Resp: Auscultation: clear to auscultation bilaterally Cardio: Rate: regular rate Rhythm: regular rhythm GI: Inspection: non-distended GI Palp: Yes Soft to palpation Skin: General skin exam: normal color Neuro: General: gait normal Speech: normal speech Extrem: General: normal to inspection Psych: Mental Status: mental status grossly normal Objective Data Vital Signs Vital Signs: Vital Signs - 24 hr 07/14/23 14:52 07/14/23 15:02 07/14/23 15:12 Temperature 98.2 F Pulse Rate 80 77 75 Respiratory Rate 26 H 23 H 23 H Blood Pressure 94/70 L 116/75 111/78 Pulse Oximetry 100 98 99 Oxygen Delivery Simple Face Mask Simple Face Mask Room Air Oxygen Flow Rate 6 3 07/14/23 15:30 07/14/23 20:15 07/14/23 20:22 Temperature 97.7 F 97.7 F Pulse Rate 78 74 Respiratory Rate 18 20 Blood Pressure 100/68 117/79 Pulse Oximetry 100 100 Oxygen Delivery Room Air Oxygen Flow Rate 07/15/23 04:03 07/15/23 08:30 Temperature 97.5 F L Pulse Rate 71 Respiratory Rate 20 Blood Pressure 129/87 Pulse Oximetry 96 Oxygen Delivery Room Air Oxygen Flow Rate Intake/Output Intake/Output: Intake & Output 07/12/23 07/13/23 07/14/23 07/15/23 23:59 23:59 23:59 23:59 Intake Total 1720 150 870 Output Total 2150 3 Balance 172 -1999 867 Meds/Results Medications: Active Medications Generic Name Dose Route Start Last Admin Trade Name Freq PRN Reason Stop Dose Admin Acetaminophen 650 mg 07/13/23 13:15 Acetaminophen 325 Mg Tablet PO Q6H PRN Mild Pain (1-3) or Fever Ferrous Sulfate 325 mg 07/14/23 17:00 07/15/23 08:23 Ferrous Sulfate [address] PO 325 mg BID KAT Administration Morphine Sulfate 2 mg 07/13/23 13:15 Morphine Sulfate (*Crx) 2 Mg/Ml Inj IV PUSH Q4H PRN Pain Rated 7-10 Ondansetron HCl 4 mg 07/13/23 12:03 Ondansetron Inj 4 Mg/2 Ml Vial IV PUSH Q4H PRN Nausea Radiology Results: ITS Impressions Abdomen/Pelvis CT 07/13/23 10:40 IMPRESSION: Prominent sigmoid colon mass stricture suggestive of sigmoid colon cancer, with peritoneal and omental metastases and prominent ascites Dr. Meyers telephoned the
[2023-07-15 13:42] VITALS: BP 129/81; PULSE 73; RESP 16; O2SAT 100
[2023-07-16 19:32] LABS: LDH Peritoneal Fluid 350 U/L (<63); Total Protein Peritoneal Fluid 4.1 g/dL
[2023-07-16 19:32] LABS: Glucose Peritoneal Fluid 83 mg/dL
[2023-07-17 13:19] LABS: Methylmalonic Acid 87 nmol/L (87-318)
[2023-07-18 16:12] LABS: Soluble Transferrin Receptor 1.87 mg/L (0.76-1.76)
[2023-07-18 19:29] LABS: Amylase Peritoneal Fluid 12 U/L
== END 2023-07-15 14:45 | disposition home or self-care (01) ==
LOC: ANHED 11:48 → ANH2MED 12:28
PROVIDERS: Emergency Medicine; Internal Medicine Gastroenterology; Nurse Practitioner Family; Physician Assistant; Admitting Provider Internal Medicine; Emergency Provider Physician Assistant; Visit Provider Nurse Practitioner Adult Health
PROC: 0DJD8ZZ Inspection of Lower Intestinal Tract, Via Natural or Artificial Opening Endoscopic (ICD-10-PCS; CPT 45378; principal; 2023-07-14 14:00)
DX: C18.7 Malignant neoplasm of sigmoid colon (principal); C78.6 Secondary malignant neoplasm of retroperitoneum and peritoneum; R18.0 Malignant ascites; K56.699 Other intestinal obstruction unspecified as to partial versus complete obstruction; E87.6 Hypokalemia; D64.9 Anemia, unspecified; R73.9 Hyperglycemia, unspecified; R00.0 Tachycardia, unspecified; F17.210 Nicotine dependence, cigarettes, uncomplicated
CPT/HCPCS: 45331; 36415; 49083; 74177; 80048; 80053; 81003; 82150; 82378; 82607; 82728; 82746; 82945; 83036; 83540; 83550; 83605; 83615; 83690; 83735; 83921; 84157; 84238; 84443; 85025; 85027; 85610; 85730; 86850; 86900; 86901; 87070; 87075; 87205; 88108; 88305; 88342; 89051; 96360; 96361; 99285; A9270; G0378; J0330; J2704; J7030; J7120; Q9967

== ENCOUNTER 2023-07-30 10:47 | Outpatient (CLI) | payer BC, SELFPAY ==
--- NOTE | ~2023-07-30 | US_ITS ---
EXAMINATION: US paracentesis abd w/image DATE: 07/30/2023 11:58 INDICATION: Ascites. TECHNIQUE: The procedure and its risks, benefits, and alternatives were discussed with the patient. P otential risks discussed included bleeding and infection. The skin was prepped and draped in sterile fashion. 1% lidocaine was used for local anesthesia. Under ultrasound guidance, a 5 Fr catheter with trochar was advanced into the ascites in the right lower quadrant. Fluid was aspirated. The catheter was removed, and a dressing was applied. There were no immediate complications. FINDINGS: Ultrasound images demonstrate ascites and the catheter within the fluid. IMPRESSION: 1. Successful ultrasound-guided paracentesis yielding 4100 mL of jose antonio-colored fluid. Reviewed, dictated and finalized at location A. [employer]OR [employer]BUTION
== END 2023-07-30 10:48 | disposition home or self-care (01) ==
PROVIDERS: Visit Provider Internal Medicine Hematology & Oncology
DX: C18.9 Malignant neoplasm of colon, unspecified (principal)
CPT/HCPCS: 49083

== ENCOUNTER 2023-08-11 10:56 | Outpatient (CLI) | payer BC, SELFPAY ==
--- NOTE | ~2023-08-11 | US_ITS ---
EXAMINATION: US paracentesis abd w/image DATE: 08/11/2023 12:15 INDICATION: Ascites. TECHNIQUE: The procedure and its risks, benefits, and alternatives were discussed with the patient. P otential risks discussed included bleeding and infection. The skin was prepped and draped in sterile fashion. 1% lidocaine was used for local anesthesia. Under ultrasound guidance, a 5 Fr catheter with trochar was advanced into the ascites in the right lower quadrant. Fluid was aspirated. The catheter was removed, and a dressing was applied. There were no immediate complications. FINDINGS: Ultrasound images demonstrate ascites and the catheter within the fluid. IMPRESSION: 1. Successful ultrasound-guided paracentesis yielding 3000 mL of dark brown fluid. Reviewed, dictated and finalized at location A. IMPRESSION: 1. Successful ultrasound-guided paracentesis yielding 3000 mL of dark brown fl uid.
== END 2023-08-11 10:57 | disposition home or self-care (01) ==
LOC: ANHIMG 11:01
PROVIDERS: PCP Internal Medicine Hematology & Oncology; Visit Provider Internal Medicine Hematology & Oncology
DX: C18.9 Malignant neoplasm of colon, unspecified (principal)
CPT/HCPCS: 49083

== ENCOUNTER 2023-08-24 09:59 | Outpatient (CLI) | payer BC, SELFPAY ==
--- NOTE | ~2023-08-24 | US_ITS ---
EXAMINATION: US paracentesis abd w/image DATE: 08/24/2023 11:17 INDICATION: Malignant neoplasm of the colon with ascites TECHNIQUE: The procedure and its risks and benefits were discussed with the patient. Potential risks discussed included bleeding and infection. The skin was prepped and draped in sterile fashion. 1% lid ocaine was used for local anesthesia. Under ultrasound guidance, a 5 Fr catheter with trochar was adv anced into the ascites in the right abdomen. Fluid was aspirated into vacuum bottles. The catheter wa s removed, and a dressing was applied. There were no immediate complications. FINDINGS: Ultrasound images demonstrate ascites and the catheter within the fluid. IMPRESSION: 1. Successful ultrasound-guided paracentesis yielding 2900 mL of cloudy jose antonio-colored fluid. Reviewed, dictated and finalized at location A. IMPRESSION: 1. Successful ultrasound-guided paracentesis yielding 2900 mL of cloudy jose antonio- colored fluid.
== END 2023-08-24 10:00 | disposition home or self-care (01) ==
LOC: ANHIMG 10:01
PROVIDERS: PCP Internal Medicine Hematology & Oncology; Referring Provider Nurse Practitioner Family; Visit Provider Internal Medicine Hematology & Oncology
DX: C18.9 Malignant neoplasm of colon, unspecified (principal)
CPT/HCPCS: 49083

== ENCOUNTER 2023-09-10 13:30 | Outpatient (CLI) | payer BC, SELFPAY ==
[2023-09-10 13:50] LABS: Hematocrit 31.1 % (42.0-52.0); Hemoglobin 9.7 g/dL (14.0-18.0); Mean Corpuscular HGB Conc 31.2 g/dl (32-36); Mean Corpuscular Hemoglobin 24.4 pg (26-34); Mean Corpuscular Volume 78.3 fl (80-100); Mean Platelet Volume 8.2 fl (7.4-10.4); Platelet Count Result 564 k/mm3 (150-375); Red Blood Count 3.97 M/mm3 (4.6-6.20); Red Cell Distribution Width 16.1 % (11.5-14.5); White Blood Count 12.1 K/mm3 (4.5-10.0)
[2023-09-10 19:37] LABS: Iron 16 ug/dL (49-181)
[2023-09-10 19:47] LABS: Percent Iron Saturation 6 % (20-50)
== END 2023-09-10 13:31 | disposition home or self-care (01) ==
PROVIDERS: Nurse Practitioner Family; Visit Provider Internal Medicine Hematology & Oncology
DX: D50.8 Other iron deficiency anemias (principal)
CPT/HCPCS: 36415; 82728; 83540; 83550; 85027

== ENCOUNTER 2023-09-14 00:18 | Day surgery (SDC) | payer BC, SELFPAY ==
[2023-09-04 11:19] VITALS: BMI 22.6
--- NOTE | 2023-09-04 11:23 | PC.NURSE ---
Report to the Outpatient Waiting Room, entrance under the green pavilion located off [facility], at time 10:00 on date 09/14/23. Planned Procedure Time: 12:00. Time changes happen often and if your time is changed the preop area will call you the afternoon before. - You and your visitor will be asked to self-screen and do not enter if you have any COVID symptoms. - A mask is optional within the hospital at this time. Patients may have clear liquids (water, carbonated beverages, clear teas, apple juice) until 3 hours prior to surgery with a maximum of 20 ounces. - No food from midnight until time of surgery Take the following medications with a SIP of water the morning of surgery: NONE DO NOT STOP ANY OF YOUR OTHER PRESCRIPTION MEDICATIONS PRIOR TO SURGERY ?EXCEPT THE FOLLOWING Medications to discontinue per physician: VITAMINS Date to take last dose: 09/10/23 Please no make-up, nail uzbek, hairspray, perfume, deodorant, or body powder the day of surgery. No jewelry (including any body piercings) or valuables the day of surgery, leave them at home. Please take a shower or bath the night before, or the morning of, surgery with an antibacterial soap. Wear comfortable, loose fitting clothing. - Jewelry must be removed prior to entering the operating room. Rings and piercings that are not removed may be cut off. - The hospital will not accept responsibility for valuables. - Please leave all valuables, including medications, at home the day of surgery. If you are going home after surgery, a licensed regional company hazmat tanker driver must drive you home. - NO public transportation without another adult if you receive anesthesia. - We recommend that an adult stay with you for 24 hours following discharge. - We also recommend that you do not drive, make important decision, drink alcoholic beverages, or take any drugs that were not prescribed by your health care provider for at least 24 hours after your discharge time. Follow any additional instructions given to you from your surgeon. If you or anyone in your household have experienced Covid symptoms in the past week, please notify your surgeon or the nurse liaison at the phone number below for possible testing. Telephone instructions given to BLAYNE DALAL and asked if any additional questions and then verbalized understanding. Patient advised to call surgeon office or pre surgery nurse liaison [phone] if any additional questions.
[2023-09-11] MEDS: ceFAZolin 2 GM/D5W 50 ML 2 GM/50 ML BAG IVPB (12:50)
--- NOTE | ~2023-09-14 | XR_ITS ---
XR chest port-a-cath/central 09/14/2023 14:06 Indication: Postop portacatheter insertion Procedure: AP portable chest Comparison: No prior studies for comparison. Findings: Portacatheter tip in the SVC. Heart size normal. No focal air space disease, pulmonary mckenna a, pleural effusion or suspected pneumothorax. Impression: 1: No acute cardiopulmonary disease. Reviewed, dictated and finalized at location B. Impression: 1: No acute cardiopulmonary disease.
--- NOTE | ~2023-09-14 | XR_ITS ---
EXAMINATION: XR fl guide central line place DATE: 09/14/2023 13:00 CDT INDICATION: DANA CATH INSERTION . TECHNIQUE: 1 fluoroscopic image of the chest were obtained during Port-A-Cath insertion, performed by Nathan Lunsford MD. I was not present during the procedure. Fluoroscopy exposure time was 23.4 second s. Air Kerma 3.9049 mGy. DAP 0.0774 mGym2. COMPARISON: None FINDINGS/IMPRESSION: Fluoroscopic documentation of Port-A-Cath insertion. Please refer to the operative note for complete procedural details. Reviewed, dictated and finalized at location K.
[2023-09-14 09:59] LABS: Basophils Percent Auto 0.3 % (0.2-1.2); Eosinophils Percent Auto 0.1 % (0-4.4); Hematocrit 33.2 % (42.0-52.0); Hemoglobin 10.4 g/dL (14.0-18.0); Immature Granulocyte Absolute 0.03 K/mm3 (0.00-0.031); Immature Granulocyte Percent A 0.3 % (0-0.5); Lymphocytes Absolute Auto 1.38 K/mm3 (0.9-3.2); Lymphocytes Percent Auto 14.7 % (18.3-44.2); Mean Corpuscular HGB Conc 31.3 g/dl (32-36); Mean Corpuscular Hemoglobin 24.4 pg (26-34); Mean Corpuscular Volume 77.9 fl (80-100); Mean Platelet Volume 8.1 fl (7.4-10.4); Monocytes Absolute Auto 0.7 K/mm3 (0.1-0.6); Monocytes Percent Auto 7.5 % (2.6-8.5); Neutrophils Absolute Auto 7.2 K/mm3 (1.3-6.7); Neutrophils Percent Auto 77.1 % (45.5-73.1); Platelet Count Result 584 k/mm3 (150-375); Red Blood Count 4.26 M/mm3 (4.6-6.20); White Blood Count 9.4 K/mm3 (4.5-10.0)
[2023-09-14 10:06] VITALS: BP 111/76; PULSE 102; RESP 14; TEMP 36.7; O2SAT 100
[2023-09-14 10:13] LABS: Prothrombin Time 13.8 Seconds (11.1-14.7)
[2023-09-14 10:15] LABS: Partial Thromboplastin Time 35.1 Seconds (22.3-36.8)
[2023-09-14] MEDS: LACTATED RINGERS 1,000 ML 30 ML IV CONT (10:59)
--- NOTE | 2023-09-14 11:13 | WPDANESEPPF ---
Anes - Initial Pre Proc Eval Procedure: Operation Date: 09/14/23 12:00 Proposed Procedures p Insertion Evangelina Cath - Nathan Lunsford MD Date/Time: 09/14/23 11:13 Surgeon: Nathan Lunsford MD Pre Op Diagnosis: Malig Neoplasm of Colon Patient Data Age: 63 Gender: M Height: 1.85 m Weight: 74.65 kg Last Vital Signs Temp 98.1 F 09/14/23 10:06 Pulse 102 H 09/14/23 10:06 Resp 14 09/14/23 10:06 BP 111/76 09/14/23 10:06 Pulse Ox 100 09/14/23 10:06 O2 Del Method Room Air 09/14/23 10:06 Allergies Allergy/AdvReac Type Severity Reaction Status Date / Time No Known Allergies Allergy Verified 09/14/23 10:25 Home Medications Medication Instructions Recorded Confirmed Type B-complex with vitamin C 1 tablet PO DAILY 07/13/23 09/04/23 History Laboratory Tests 09/14/23 09:50 WBC 9.4 K/mm3 (4.5-10.0) RBC 4.26 L M/mm3 (4.6-6.20) Hgb 10.4 L g/dL (14.0-18.0) Hct 33.2 L % (42.0-52.0) MCV 77.9 L fl (80-100) MCH 24.4 L pg (26-34) MCHC 31.3 L g/dl (32-36) RDW 16.0 H % (11.5-14.5) Plt Count 584 H k/mm3 (150-375) MPV 8.1 fl (7.4-10.4) Immature Gran % (Auto) 0.3 % (0-0.5) Neut % (Auto) 77.1 H % (45.5-73.1) Lymph % (Auto) 14.7 L % (18.3-44.2) [place] % (Auto) 7.5 % (2.6-8.5) Eos % (Auto) 0.1 % (0-4.4) Baso % (Auto) 0.3 % (0.2-1.2) Lymph # (Auto) 1.38 K/mm3 (0.9-3.2) [place] # (Auto) 0.7 H K/mm3 (0.1-0.6) Eos # (Auto) 0.0 K/mm3 (0-0.3) Baso # (Auto) 0.0 K/mm3 (0.0-0.1) Abs Immat Gran (auto) 0.03 K/mm3 (0.00-0.031) Absolute Neuts (auto) 7.2 H K/mm3 (1.3-6.7) Absolute Nucleated RBC 0.000 K/mm3 (0.0-0.012) Nucleated RBC % 0.0 % (0.0-0.2) PT 13.8 Seconds (11.1-14.7) INR 1.0 APTT 35.1 Seconds (22.3-36.8) Patient hx anesthesia problems: none and other (Pt aspirated during colonoscopy 07/2023, intubated w glidescope, DC the next day. ) Family hx anesthesia problems: none Results Review: All pre-operative results and documents have been reviewed as part of the pre-operative evaluation. [facility] Past Medical History Medical History (Updated 07/21/23 @ 12:34 by Ale Chaney, DONNELL) Colon cancer metastasized to multiple sites No pertinent past medical history Surgical History Surgical History History of inguinal hernia repair As an infant Social History Social History Social History: Surrogate medical decision maker: Orin Christensen, niece. Code status: Full code. Smoking packs per day: 0.5 Smoking cigarettes per day: 10.0 Years smoked: 50 Smoking pack-years: 25.00 Smoking status: Current every day smoker Tobacco type: cigarettes Alcohol intake: never Substance use: never Substance use type: does not use Do You Feel Safe in your Home?: Yes Lack of Transportation: No Lack of Food: Never True Current Housing: I Have Housing Concerned About Future Housing: No Difficulty Paying Gas/Electric Bills: No Difficulty Paying for Meds: No Currently Unemployed: No Education: High School Diploma/GED Difficulty w/ Childcare or Family Care: No Living arrangements: alone 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 Spiritual care concerns: No Anes - Eval Final PreProcedure Day of Procedure 09/14/23 11:13 Patient weight: normal Heart: regular rate and rhythm Lungs: clear to auscultation Airway: Mallampati scale class II and special considerations (Upper teeth in poor condition, many missing, posts in place from prev dental work. Reports none loose. ) Neurological: alert and oriented Last oral intake: >/= 8 hours ASA classification: III Emergent: no Anesthetic plan: proceed Anesthesia type and monitoring: general GIVS and standard monitoring Results Review: All pr
--- NOTE | 2023-09-14 12:45 | PM.IMHP ---
H&P: HPI History of Present Illness Date/Time: 09/14/23 12:45 Chief Complaint: Unresectable colon cancer, need for afsaneh catheter placement Narrative: Patient is an 63-year-old gentleman who unfortunately has been diagnosed with metastatic unresectable colon cancer. He has decided to chemotherapy treatments and presents now for placement afsaneh catheter to initiate chemotherapy treatments. He has not had a previous central line in the subclavian or internal jugular veins. He has never broken his clavicle. He is anemic and is to undergo iron infusions as well. Review of Systems Review of Systems: The remainder of the review of systems to include constitutional, HEENT, cardiovascular, respiratory, GI, , integumentary, musculoskeletal, endocrine, immunologic, hematologic, psychiatric, and neurologic are all negative except for which is mentioned above in the HPI. [facility] Past Medical History Medical History Colon cancer metastasized to multiple sites No pertinent past medical history Surgical History Surgical History History of inguinal hernia repair As an infant Social History Social History Social History: Surrogate medical decision maker: Orinshelia Christensen, niece. Code status: Full code. Smoking packs per day: 0.5 Smoking cigarettes per day: 10.0 Years smoked: 50 Smoking pack-years: 25.00 Smoking status: Current every day smoker Tobacco type: cigarettes Alcohol intake: never Substance use: never Substance use type: does not use Do You Feel Safe in your Home?: Yes Lack of Transportation: No Lack of Food: Never True Current Housing: I Have Housing Concerned About Future Housing: No Difficulty Paying Gas/Electric Bills: No Difficulty Paying for Meds: No Currently Unemployed: No Education: High School Diploma/GED Difficulty w/ Childcare or Family Care: No Living arrangements: alone 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 Spiritual care concerns: No Meds Home Medications and Allergies Home Medications Medication Instructions Recorded Confirmed Type B-complex with vitamin C 1 tablet PO DAILY 07/13/23 09/04/23 History Allergies Allergy/AdvReac Type Severity Reaction Status Date / Time No Known Allergies Allergy Verified 09/14/23 10:25 Vital Signs Vital Signs - 24 hr 09/14/23 10:06 Temperature 36.7 C Pulse Rate 102 H Respiratory Rate 14 Blood Pressure 111/76 Pulse Oximetry 100 Oxygen Delivery Room Air Exam Const: General: comfortable and no acute distress HENMT: Ears: TM's normal bilaterally Face/Nose/Sinus: Normal nares present Mouth: Yes moist mucous membranes Eyes: General: appearance normal, both eyes and all related structures Sclera: sclerae normal Pupils: Equal, round and reactive pupils present EOM: EOMs intact bilaterally Neck: Neck: supple and no JVD Chest: Other: No rashes in the bilateral anterior chest or neck. Resp: Effort & Inspection: normal respiratory effort Auscultation: clear to auscultation bilaterally Cardio: Rate: regular rate Rhythm: regular rhythm GI: GI Palp: Yes Soft to palpation, No Firmness to palpation present (GI), No Tenderness to palpation present (GI), No Guarding due to palpation present (GI) and No Hernia present Skin: General skin exam: normal color and no rashes or lesions noted Neuro: General: gait normal Speech: normal speech Extrem: General: normal to inspection Psych: Mental Status: mental status grossly normal Affect: normal affect H&P: Results Labs Labs: Short CBC 09/14/23 Range/Units 09:50 WBC 9.4 (4.5-10.0) K/mm3 Hgb 10.4 L (14.0-18.0) g/dL Hct 33.2 L (42.0-52.0) % Plt Count 584 H (150-375) k/mm3 Assessment and Plan Assessment and plan (1) Colon canc
--- NOTE | 2023-09-14 12:49 | WPDHPUPDATE1 ---
History and Physical Update Update Date/Time: 09/14/23 12:49 History and Physical has been reviewed, including an updated exam of the patient. There are NO changes in the patient's condition. Risks, benefits, and alternatives have been discussed and questions answered. Patient agrees to proceed with procedure.
[2023-09-14] MEDS: BUPivacaine HCL 0.5% 10 ML AMP INFILTRATE (13:30)
[2023-09-14] MEDS: LIDO 1%/EPINEPHRINE 1:100,000 20 ML VIAL 10 ML INFILTRATE (13:30)
[2023-09-14 13:48] VITALS: BP 106/71; PULSE 106; RESP 14; O2SAT 97
--- NOTE | 2023-09-14 13:56 | PM.OP ---
Procedure Note - Brief Procedure Note - Brief Date of procedure: 09/14/23 Metastatic unresectable colon cancer Post-op diagnosis: Same Procedure performed: Ultrasound-guided placement of right internal jugular vein afsaneh catheter with intraoperative fluoroscopy Surgeon: Nathan Lunsford MD Anesthesia: MAC Implants: 9.6 [place] single-lumen catheter attached to Smart Port Estimated blood loss (mL): 10 Drains: No Packing: No Pathology: None sent Complications: No immediate complications Condition: Stable Disposition: PACU
[2023-09-14 14:15] VITALS: BP 104/76; PULSE 104; RESP 14
[2023-09-14 14:45] VITALS: BP 106/77; PULSE 102; RESP 14
--- NOTE | 2023-09-16 17:23 | W.PM.PROC2 ---
Procedure Note - Detailed Date of Procedure 09/14/23 Pre-op Diagnosis Metastatic colon cancer. Post-op Diagnosis Same Procedure Performed Ultrasound-guided placement of right internal jugular vein afsaneh catheter with intraoperative fluoroscopy. Surgeon Nathan Lunsford MD Anesthesia MAC Indications Patient is a 63-year-old gentleman who unfortunately has unresectable metastatic colon cancer. He is to undergo chemotherapy treatments presents now for placement afsaneh catheter to start chemotherapy treatments. Findings None significant Description of Procedure after informed consent was obtained patient brought to the operating room was placed supine position and then IV sedation was administered by anesthesia. The bilateral upper anterior neck and chest was then prepped and draped usual sterile fashion. A time-out was then performed correctly identifying the patient as well as procedure to be performed verifying the perioperative IV antibiotics. I then approach placement of the catheter into the right internal jugular vein. 1% lidocaine mixed with 0.5% Marcaine was injected just below the medial right clavicle as well as between the 2 heads of the right sternocleidomastoid muscle. The with the patient head-down Trendelenburg position I then used a ultrasound probe to directly visualize the right internal jugular vein with the ultrasound. A long 18gauge needle was then used to cannulate the right internal jugular vein and the real-time ultrasonography. There was prompt return of dark venous appearing blood into the syringe and so then I advanced a guidewire through the needle into the right internal jugular vein and subsequently down into the right atrium of the heart. Intraoperative fluoroscopy was used to confirm the proper placement of tip of the guidewire. I then made a subcutaneous port pocket just below the medial 3rd of the right clavicle. a transverse incision was then made in this area with a scalpel dissection was carried down through the subcutaneous tissues. Patient had very little subcutaneous tissue this area so I divided the anterior pectoralis fascia and placed it underneath the anterior pectoralis fascia directly onto the Pectoralis major muscle fibers. The single-lumen 9.6 [place] catheter was then tunneled between the port incision and the right anterior lateral neck incision. A dilator and breakaway sheath was advanced into the right internal jugular vein and then the dilator and guidewire removed leaving the sheath in place. The single-lumen catheter was advanced through the sheath into the right internal jugular vein subsequent down into the right atrium of the heart. Sheath was torn away leaving the catheter in place. Intraoperative fluoroscopy was then used to visualize the tip of the catheter was pulled back into was in the distal superior vena cava. The catheter was then cut to the appropriate length at the skin level with the port pocket and attached to the Smart Port. A small probe was then secured in the subcutaneous port pocket on 3 sides utilizing 3-0 Prolene sutures. The port was then accessed and aspirated blood easily and was flushed with heparinized saline solution. I then irrigated out the port pocket sterile saline solution hemostasis was good. I then closed the port pocket utilizing interrupted 3-0 Vicryl sutures in the subcutaneous tissues. Skin edges were approximated utilizing a running subcuticular 4 Monocryl suture. Small incision in the right anterior lateral neck was closed with 3-0 Vicryl suture as well. Both incisions were then cleaned the skin glue was applied. I then accessed the port percutaneously 1 last time in access blood easily and was flushed with 5000units of heparinized saline. The patient tolerated the procedure well no complications. All sponges, needles, and instrument counts were correct at the end procedure. EBL was _20__cc. The patient was awakened and taken to recovery in s
== END 2023-09-14 14:48 | disposition home or self-care (01) ==
PROVIDERS: Visit Provider Surgery
PROC: (CPT 36561; principal; 2023-09-14 12:00)
DX: C18.9 Malignant neoplasm of colon, unspecified (principal); C79.9 Secondary malignant neoplasm of unspecified site; F17.210 Nicotine dependence, cigarettes, uncomplicated
CPT/HCPCS: 36561; 36415; 77001; 85025; 85610; 85730; C1788; J0690; J1644; J2704; J3010; J7030; J7120

== ENCOUNTER 2023-10-08 07:41 | Outpatient (RCR) | payer BC, SELFPAY ==
[2023-10-08] VITALS (9 sets, daily range): BP systolic 94–109; BP diastolic 62–75; PULSE 84–109; RESP 14–18; TEMP 36.2–37.6; O2SAT 96–98
[2023-10-08] MEDS: ACETAMINOPHEN 325 MG TABLET 650 MG PO (08:07)
[2023-10-08] MEDS: SODIUM CHLORIDE 0.9% IV 250 ML 30 ML IV CONT (08:08)
[2023-10-08] MEDS: diphenhydrAMINE HCl CAP 25 MG CAPSULE PO (08:08)
[2023-10-08] MEDS: FUROSEMIDE INJ 40 MG/4 ML VIAL 20 MG IV PUSH (10:35)
[2023-10-08] MEDS: HEPARIN SODIUM LOCK FLUSH 500 UNITS/5 ML VIAL (12:48)
== END 2023-11-12 23:59 | disposition home or self-care (01) ==
LOC: ANHCPCTRAN 07:41
PROVIDERS: Visit Provider Internal Medicine Hematology & Oncology
DX: C18.9 Malignant neoplasm of colon, unspecified (principal)
CPT/HCPCS: 36415; 36430; 86850; 86900; 86901; 86923; 96374; A9270; J1642; J1940; J7050; P9016

== ENCOUNTER 2023-11-02 10:48 | Outpatient (RCR) | payer BC, SELFPAY ==
[2023-09-08 09:48] LABS: Mean Platelet Volume 7.8 fl (7.4-10.4); Platelet Count Result 549 k/mm3 (150-375)
[2023-09-08 10:03] LABS: INR 1.1; Prothrombin Time 14.9 Seconds (11.1-14.7)
--- NOTE | ~2023-11-02 | US_ITS ---
EXAMINATION: US paracentesis abd w/image DATE: 09/08/2023 10:45 INDICATION: Ascites. TECHNIQUE: The procedure and its risks, benefits, and alternatives were discussed with the patient. P otential risks discussed included bleeding and infection. The skin was prepped and draped in sterile fashion. 1% lidocaine was used for local anesthesia. Under ultrasound guidance, a 5 Fr catheter with trochar was advanced into the ascites in the right lower quadrant. Fluid was aspirated. The catheter was removed, and a dressing was applied. There were no immediate complications. FINDINGS: Ultrasound images demonstrate ascites and the catheter within the fluid. IMPRESSION: 1. Successful ultrasound-guided paracentesis yielding 3600 mL of chandler fluid. Reviewed, dictated and finalized at location A.
--- NOTE | ~2023-11-02 | US_ITS ---
EXAMINATION: US paracentesis abd w/image DATE: 10/05/2023 13:46 INDICATION: Ascites. TECHNIQUE: The procedure and its risks and benefits were discussed with the patient. Potential risks discussed included bleeding and infection. The skin was prepped and draped in sterile fashion. 1% lid ocaine was used for local anesthesia. Under ultrasound guidance, a 5 Fr catheter with trochar was adv anced into the ascites in the right abdomen. Fluid was aspirated into vacuum bottles. The catheter wa s removed, and a dressing was applied. There were no immediate complications. FINDINGS: Ultrasound images demonstrate ascites and the catheter within the fluid. IMPRESSION: 1. Successful ultrasound-guided paracentesis yielding 550 mL of reddish jose antonio-colored fluid. Reviewed, dictated and finalized at location A. IMPRESSION: 1. Successful ultrasound-guided paracentesis yielding 550 mL of reddish jose antonio- colored fluid.
--- NOTE | ~2023-11-02 | US_ITS ---
EXAMINATION: US abdomen limited DATE: 11/02/2023 12:10 INDICATION: Malignant neoplasm of colon. TECHNIQUE: Multiple grayscale ultrasound images of the abdomen were obtained. COMPARISON: CT abdomen and pelvis 07/13/2023 FINDINGS: A survey of the 4 quadrants of the abdomen demonstrates no ascites. IMPRESSION: 1. No ascites. The paracentesis was canceled. Reviewed, dictated and finalized at location A.
--- NOTE | ~2023-11-02 | US_ITS ---
US paracentesis abd w/image DATE: 09/22/2023 11:39 INDICATION: Ascites; malignant neoplasm of colon. TECHNIQUE: The purpose of the procedure, technique and potential locations were discussed with the brittney monroy. The patient indicated understanding and gave consent. Timeout procedure was performed. The skin of the lateral aspect of the right upper quadrant was prepared with sterile Betadine. The sk in and underlying subcutaneous tissues were infiltrated with 6 CC 1% lidocaine. A single stick needle /catheter was introduced with ultrasound guidance into the right upper quadrant peritoneal cavity. Th e catheter was advanced over the needle and the needle withdrawn. 3.2 L of chandler ascites was drained uneventfully into Vacutainer bottles. IMPRESSION: Percutaneous ultrasound-guided paracentesis procedure yielding 3.2 L of ascites Reviewed, dictated and finalized at Location A. Reviewed, dictated and finalized at location A.
[2023-11-02 12:16] LABS: INR 1.2; Prothrombin Time 15.6 Seconds (11.1-14.7)
== END 2023-11-12 23:59 | disposition home or self-care (01) ==
LOC: ANHIMG 10:48
PROVIDERS: Radiology Diagnostic Radiology; Visit Provider Internal Medicine Hematology & Oncology
DX: C18.9 Malignant neoplasm of colon, unspecified (principal)
CPT/HCPCS: 36415; 49083; 76705; 85049; 85610

== ENCOUNTER 2023-11-06 11:30 | Outpatient (RCR) | payer BC, SELFPAY ==
--- NOTE | 2023-09-04 11:24 | PHAR ---
Biosimilar substitution per protocol: AVASTIN will be subbed to ZIRABEV (BEVACIZUMAB-BVZR) (Petpace). Patient will be notified of substitution by nurse during education or at their first treatment.
[2023-09-18] MEDS: ACETAMINOPHEN 325 MG TABLET 650 MG PO (13:28)
[2023-09-18] MEDS: diphenhydrAMINE HCl INJ 50 MG/ML VIAL 25 MG IV PUSH (13:32)
[2023-09-18] MEDS: ferumoxytoL 510 MG in SODIUM CHLORIDE 0.9% IV 83 ML 300 MG IVPB (13:43)
[2023-09-18 13:47] VITALS: BP 110/68; PULSE 115; TEMP 37; O2SAT 100
[2023-09-18 14:29] VITALS: BP 105/66
[2023-09-18] MEDS: HEPARIN SODIUM LOCK FLUSH 500 UNITS/5 ML SYRINGE IV PUSH (14:35)
[2023-09-23 08:39] LABS: Basophils Percent Auto 0.2 % (0.2-1.2); Eosinophils Percent Auto 0.3 % (0-4.4); Hematocrit 28.1 % (42.0-52.0); Hemoglobin 9.2 g/dL (14.0-18.0); Immature Granulocyte Absolute 0.09 K/mm3 (0.00-0.031); Immature Granulocyte Percent A 0.7 % (0-0.5); Lymphocytes Absolute Auto 1.32 K/mm3 (0.9-3.2); Lymphocytes Percent Auto 10.8 % (18.3-44.2); Mean Corpuscular HGB Conc 32.7 g/dl (32-36); Mean Corpuscular Hemoglobin 24.7 pg (26-34); Mean Corpuscular Volume 75.5 fl (80-100); Mean Platelet Volume 8.1 fl (7.4-10.4); Monocytes Absolute Auto 0.9 K/mm3 (0.1-0.6); Monocytes Percent Auto 7.7 % (2.6-8.5); Neutrophils Absolute Auto 9.8 K/mm3 (1.3-6.7); Neutrophils Percent Auto 80.3 % (45.5-73.1); Platelet Count Result 583 k/mm3 (150-375); Red Blood Count 3.72 M/mm3 (4.6-6.20); Red Cell Distribution Width 16.5 % (11.5-14.5); White Blood Count 12.2 K/mm3 (4.5-10.0)
[2023-09-23 08:46] LABS: Blood Urea Nitrogen 10 mg/dL (8-26); Carbon Dioxide 31 mmol/L (22-30); Chloride 94 mmol/L (98-109); Estimated Glomerular Filt Rate > 60; Glucose 109 mg/dL (70-105); Ionized Calcium (POC) 1.15 mmol/L (1.11-1.31); Potassium 3.6 mmol/L (3.5-4.9); Sodium 134 mmol/L (138-146)
[2023-09-23 08:47] LABS: Anisocytosis 1+; Hypochromasia 1+; Microcytosis 1+ (NORMAL); Platelet Estimate Increased (Adequate); Schistocytes None Seen
[2023-09-23 08:56] VITALS: BP 107/70; PULSE 107; TEMP 36.9; O2SAT 98
[2023-09-23] MEDS: ACETAMINOPHEN 325 MG TABLET 650 MG PO (09:23)
[2023-09-23] MEDS: diphenhydrAMINE HCl INJ 50 MG/ML VIAL 25 MG IV PUSH (09:24)
[2023-09-23] MEDS: ferumoxytoL 510 MG in SODIUM CHLORIDE 0.9% IV 83 ML 300 MG IVPB (09:30)
[2023-09-23] MEDS: PALONOSETRON HCL 0.25 MG/5 ML VIAL IV PUSH (10:19)
[2023-09-23] MEDS: FAMOTIDINE 20 MG/2 ML VIAL IV PUSH (10:21)
[2023-09-23] MEDS: dexAMETHasone SOD 4 MG/ML INJ 12 MG in SODIUM CHLORIDE 0.9% IV 100 ML 206 MG IVPB (10:23)
[2023-09-23 10:48] LABS: Alanine Aminotransferase 17 U/L (6-50); Albumin Level 3.2 g/dL (3.5-5.1); Alkaline Phosphatase 62 U/L (38-126); Anion Gap 4 mmol/L (4-12); Aspartate Amino Transferase 18 U/L (17-59); Bilirubin,Total 0.3 mg/dL (0.2-1.3); Blood Urea Nitrogen 12 mg/dL (9-20); Calcium 8.7 mg/dL (8.4-10.2); Carbon Dioxide 29 mmol/L (22-30); Chloride 98 mmol/L (98-107); Estimated Glomerular Filt Rate > 60; Glucose 107 mg/dL (65-110); Potassium 3.6 mmol/L (3.4-5.0); Sodium 131 mmol/L (137-145)
[2023-09-23 11:13] LABS: Appearance Urine Clear (Clear); Bacteria Urine None Seen /hpf; Bilirubin Urine Negative (Negative); Blood Urine 2+ (Negative); Calcium Oxalate Crystals Urine Present /hpf; Color Urine Dark Yellow (Yellow); Glucose Urine UA Negative (Negative); Ketones Urine Trace mg/dL (Negative); Leukocyte Esterase Ur Negative LEU/UL (Negative); Mucus Urine Present /lpf; Nitrate Urine Negative (Negative); Protein Urine 3+ mg/dL (Negative); RBC Urine 21-50 /hpf (0-2); Specific Grav Ur 1.027 (1.001-1.035); Squamous Epithelial Cell Urine None Seen /hpf (Few)
[2023-09-23 11:16] LABS: Add Urine Microscopic? YES
--- NOTE | 2023-09-23 11:46 | PHAR ---
HOLDING PATIENT'S ZIRABEV TODAY PER DR DUE TO UPRO 3+. WILL CHECK AGAIN AT NEXT TREATMENT.
[2023-09-23] MEDS: FLUOROURACIL 1,000 MG/20 ML VIAL 820 MG IV PUSH (13:27)
[2023-09-23 13:33] VITALS: BP 113/71
--- NOTE | 2023-09-24 16:03 | PC.NURSE ---
RN placed call to patient to check on him after chemotherapy 09/23/2023 and pump placement. Patient states he is doing well, no N/V. He just noticed he is urinating more. No other complaints.
[2023-09-25 11:35] VITALS: BP 126/79; PULSE 110; TEMP 36.7; O2SAT 98
--- NOTE | 2023-09-25 11:37 | PC.NURSE ---
Patient here for pump removal
[2023-09-25] MEDS: HEPARIN SODIUM LOCK FLUSH 500 UNITS/5 ML SYRINGE IV PUSH (11:45)
--- NOTE | 2023-09-28 16:23 | PC.NURSE ---
Patient states that he picked up his antibiotic on 09/25/2023 and feels a little better.
[2023-10-07 08:32] LABS: Hematocrit 24.6 % (42.0-52.0); Hemoglobin 7.9 g/dL (14.0-18.0); Mean Corpuscular HGB Conc 32.1 g/dl (32-36); Mean Corpuscular Hemoglobin 25.2 pg (26-34); Mean Corpuscular Volume 78.3 fl (80-100); Mean Platelet Volume 8.6 fl (7.4-10.4); Platelet Count Result 296 k/mm3 (150-375); Red Blood Count 3.14 M/mm3 (4.6-6.20); Red Cell Distribution Width 20.1 % (11.5-14.5)
[2023-10-07 08:39] LABS: Blood Urea Nitrogen 14 mg/dL (8-26); Carbon Dioxide 24 mmol/L (22-30); Chloride 93 mmol/L (98-109); Estimated Glomerular Filt Rate > 60; Glucose 113 mg/dL (70-105); Ionized Calcium (POC) 1.17 mmol/L (1.11-1.31); Potassium 3.5 mmol/L (3.5-4.9); Sodium 129 mmol/L (138-146)
[2023-10-07 08:46] LABS: Anisocytosis 1+; Band Neutrophils Percent 18 % (0-6); Eosinophils Absolute Manual 0.04 K/mm3 (0.02-0.50); Eosinophils Percent Manual 1 % (0-4); Lymphocytes Absolute Manual 1.68 K/mm3 (1.1-4.5); Metamyelocytes Percent 1 %; Microcytosis 1+ (NORMAL); Monocytes Absolute Manual 0.44 K/mm3 (0.1-0.90); Monocytes Percent Manual 11 % (3-9); Neutrophils Percent Manual 27 % (46-73); Platelet Estimate Adequate (Adequate); Schistocytes None Seen; Total Cells Counted 100
[2023-10-07] MEDS: HEPARIN SODIUM LOCK FLUSH 500 UNITS/5 ML SYRINGE (09:17)
[2023-10-07 09:35] LABS: Alanine Aminotransferase 20 U/L (6-50); Albumin Level 3.2 g/dL (3.5-5.1); Alkaline Phosphatase 70 U/L (38-126); Anion Gap 6 mmol/L (4-12); Aspartate Amino Transferase 37 U/L (17-59); Bilirubin,Total 0.7 mg/dL (0.2-1.3); Blood Urea Nitrogen 17 mg/dL (9-20); Carbon Dioxide 27 mmol/L (22-30); Chloride 96 mmol/L (98-107); Estimated Glomerular Filt Rate > 60; Glucose 111 mg/dL (65-110); Potassium 3.5 mmol/L (3.4-5.0); Sodium 129 mmol/L (137-145)
[2023-10-14 09:19] LABS: Basophils Percent Auto 0.4 % (0.2-1.2); Eosinophils Absolute Auto 0.1 K/mm3 (0-0.3); Eosinophils Percent Auto 1.5 % (0-4.4); Hematocrit 33.7 % (42.0-52.0); Hemoglobin 10.8 g/dL (14.0-18.0); Immature Granulocyte Percent A 1.5 % (0-0.5); Lymphocytes Percent Auto 17.7 % (18.3-44.2); Mean Corpuscular Hemoglobin 26.3 pg (26-34); Monocytes Absolute Auto 0.6 K/mm3 (0.1-0.6); Monocytes Percent Auto 8.2 % (2.6-8.5); Neutrophils Absolute Auto 4.8 K/mm3 (1.3-6.7); Neutrophils Percent Auto 70.7 % (45.5-73.1); Platelet Count Result 465 k/mm3 (150-375); Red Blood Count 4.11 M/mm3 (4.6-6.20); Red Cell Distribution Width 21.8 % (11.5-14.5); White Blood Count 6.8 K/mm3 (4.5-10.0)
[2023-10-14 09:27] LABS: Blood Urea Nitrogen 16 mg/dL (8-26); Carbon Dioxide 28 mmol/L (22-30); Chloride 100 mmol/L (98-109); Estimated Glomerular Filt Rate > 60; Glucose 86 mg/dL (70-105); Ionized Calcium (POC) 1.23 mmol/L (1.11-1.31); Potassium 4.6 mmol/L (3.5-4.9); Sodium 134 mmol/L (138-146)
[2023-10-14 09:36] VITALS: BP 126/83; PULSE 87; TEMP 36.3; O2SAT 99
[2023-10-14 10:23] LABS: Alanine Aminotransferase 16 U/L (6-50); Albumin Level 3.3 g/dL (3.5-5.1); Alkaline Phosphatase 73 U/L (38-126); Anion Gap 6 mmol/L (4-12); Aspartate Amino Transferase 17 U/L (17-59); Bilirubin,Total 0.3 mg/dL (0.2-1.3); Blood Urea Nitrogen 19 mg/dL (9-20); Calcium 9.1 mg/dL (8.4-10.2); Carbon Dioxide 25 mmol/L (22-30); Chloride 103 mmol/L (98-107); Estimated Glomerular Filt Rate > 60; Glucose 87 mg/dL (65-110); Potassium 4.6 mmol/L (3.4-5.0); Sodium 134 mmol/L (137-145)
[2023-10-14 10:25] LABS: Bacteria Urine 4+ /hpf; Need Manual Microscopic Reviewed; Non Pathogenic Casts 0-2; RBC Urine >100 /hpf (0-2); Squamous Epithelial Cell Urine Moderate /hpf (Few); WBC Urine 51-100 /hpf (0-3)
[2023-10-14 10:26] LABS: Appearance Urine Turbid (Clear); Bilirubin Urine Negative (Negative); Blood Urine 2+ (Negative); Glucose Urine UA Negative (Negative); Ketones Urine Negative (Negative); Leukocyte Esterase Ur 3+ LEU/UL (Negative); Nitrate Urine Negative (Negative); Protein Urine 1+ mg/dL (Negative); Specific Grav Ur 1.018 (1.001-1.035)
[2023-10-14 10:27] LABS: Add Urine Microscopic? YES; Color Urine Brown (Yellow)
[2023-10-14] MEDS: HEPARIN SODIUM LOCK FLUSH 500 UNITS/5 ML SYRINGE (10:54)
[2023-10-21 09:03] LABS: Basophils Absolute Auto 0.1 K/mm3 (0.0-0.1); Basophils Percent Auto 0.8 % (0.2-1.2); Eosinophils Percent Auto 0.3 % (0-4.4); Hematocrit 32.1 % (42.0-52.0); Hemoglobin 10.4 g/dL (14.0-18.0); Immature Granulocyte Absolute 0.02 K/mm3 (0.00-0.031); Immature Granulocyte Percent A 0.3 % (0-0.5); Lymphocytes Absolute Auto 1.22 K/mm3 (0.9-3.2); Lymphocytes Percent Auto 20.1 % (18.3-44.2); Mean Corpuscular HGB Conc 32.4 g/dl (32-36); Mean Corpuscular Hemoglobin 26.8 pg (26-34); Mean Corpuscular Volume 82.7 fl (80-100); Mean Platelet Volume 7.9 fl (7.4-10.4); Monocytes Absolute Auto 0.7 K/mm3 (0.1-0.6); Monocytes Percent Auto 11.8 % (2.6-8.5); Neutrophils Absolute Auto 4.1 K/mm3 (1.3-6.7); Neutrophils Percent Auto 66.7 % (45.5-73.1); Platelet Count Result 429 k/mm3 (150-375); Red Blood Count 3.88 M/mm3 (4.6-6.20); Red Cell Distribution Width 22.5 % (11.5-14.5); White Blood Count 6.1 K/mm3 (4.5-10.0)
[2023-10-21 09:09] LABS: Blood Urea Nitrogen 19 mg/dL (8-26); Carbon Dioxide 27 mmol/L (22-30); Chloride 96 mmol/L (98-109); Estimated Glomerular Filt Rate > 60; Glucose 88 mg/dL (70-105); Ionized Calcium (POC) 1.18 mmol/L (1.11-1.31); Potassium 4.3 mmol/L (3.5-4.9); Sodium 133 mmol/L (138-146)
[2023-10-21 09:12] VITALS: BP 117/78; PULSE 100; TEMP 36.3; O2SAT 100
[2023-10-21] MEDS: PALONOSETRON HCL 0.25 MG/5 ML VIAL IV PUSH (09:28)
[2023-10-21] MEDS: diphenhydrAMINE HCl INJ 50 MG/ML VIAL 25 MG IV PUSH (09:29)
[2023-10-21] MEDS: FAMOTIDINE 20 MG/2 ML VIAL IV PUSH (09:29)
[2023-10-21] MEDS: dexAMETHasone SOD 4 MG/ML INJ 12 MG in SODIUM CHLORIDE 0.9% IV 100 ML 206 MG IVPB (09:40)
[2023-10-21 11:13] LABS: Alanine Aminotransferase 19 U/L (6-50); Albumin Level 3.6 g/dL (3.5-5.1); Alkaline Phosphatase 70 U/L (38-126); Anion Gap 5 mmol/L (4-12); Aspartate Amino Transferase 16 U/L (17-59); Bilirubin,Total 0.3 mg/dL (0.2-1.3); Blood Urea Nitrogen 21 mg/dL (9-20); Calcium 8.6 mg/dL (8.4-10.2); Carbon Dioxide 28 mmol/L (22-30); Chloride 99 mmol/L (98-107); Estimated Glomerular Filt Rate > 60; Glucose 87 mg/dL (65-110); Potassium 4.2 mmol/L (3.4-5.0); Sodium 132 mmol/L (137-145)
[2023-10-21 13:54] VITALS: BP 111/75
[2023-10-21] MEDS: FLUOROURACIL 1,000 MG/20 ML VIAL 820 MG IV PUSH (14:00)
[2023-10-23 12:27] VITALS: BP 115/82; PULSE 90; TEMP 36.3; O2SAT 99
[2023-10-23] MEDS: HEPARIN SODIUM LOCK FLUSH 500 UNITS/5 ML SYRINGE IV PUSH (12:31)
--- NOTE | 2023-10-23 15:40 | PC.NURSE ---
Patient here for a pump disconnect.
[2023-11-04 09:32] LABS: Basophils Percent Auto 0.5 % (0.2-1.2); Eosinophils Percent Auto 0.9 % (0-4.4); Hematocrit 30.8 % (42.0-52.0); Immature Granulocyte Absolute 0.01 K/mm3 (0.00-0.031); Immature Granulocyte Percent A 0.2 % (0-0.5); Lymphocytes Absolute Auto 1.23 K/mm3 (0.9-3.2); Lymphocytes Percent Auto 28.3 % (18.3-44.2); Mean Corpuscular HGB Conc 32.5 g/dl (32-36); Mean Corpuscular Hemoglobin 27.1 pg (26-34); Mean Corpuscular Volume 83.5 fl (80-100); Mean Platelet Volume 8.2 fl (7.4-10.4); Monocytes Percent Auto 22.4 % (2.6-8.5); Neutrophils Absolute Auto 2.1 K/mm3 (1.3-6.7); Neutrophils Percent Auto 47.7 % (45.5-73.1); Platelet Count Result 413 k/mm3 (150-375); Red Blood Count 3.69 M/mm3 (4.6-6.20); Red Cell Distribution Width 22.5 % (11.5-14.5); White Blood Count 4.3 K/mm3 (4.5-10.0)
[2023-11-04 09:37] LABS: Blood Urea Nitrogen 20 mg/dL (8-26); Carbon Dioxide 27 mmol/L (22-30); Chloride 96 mmol/L (98-109); Estimated Glomerular Filt Rate > 60; Glucose 111 mg/dL (70-105); Ionized Calcium (POC) 1.22 mmol/L (1.11-1.31); Potassium 3.8 mmol/L (3.5-4.9); Sodium 133 mmol/L (138-146)
[2023-11-04 10:23] VITALS: BP 108/73; PULSE 104; TEMP 35.9; O2SAT 100
[2023-11-04] MEDS: diphenhydrAMINE HCl INJ 50 MG/ML VIAL 25 MG IV PUSH (11:06)
[2023-11-04] MEDS: FAMOTIDINE 20 MG/2 ML VIAL IV PUSH (11:06)
[2023-11-04] MEDS: PALONOSETRON HCL 0.25 MG/5 ML VIAL IV PUSH (11:06)
[2023-11-04] MEDS: dexAMETHasone SOD 4 MG/ML INJ 12 MG in SODIUM CHLORIDE 0.9% IV 100 ML 206 MG IVPB (11:17)
[2023-11-04 11:43] LABS: Alanine Aminotransferase 20 U/L (6-50); Albumin Level 3.6 g/dL (3.5-5.1); Alkaline Phosphatase 76 U/L (38-126); Anion Gap 7 mmol/L (4-12); Aspartate Amino Transferase 23 U/L (17-59); Bilirubin,Total 0.7 mg/dL (0.2-1.3); Blood Urea Nitrogen 22 mg/dL (9-20); Calcium 9.1 mg/dL (8.4-10.2); Carbon Dioxide 26 mmol/L (22-30); Chloride 98 mmol/L (98-107); Estimated Glomerular Filt Rate > 60; Glucose 109 mg/dL (65-110); Potassium 3.9 mmol/L (3.4-5.0); Sodium 131 mmol/L (137-145)
[2023-11-04 14:12] LABS: Appearance Urine Turbid (Clear); Color Urine Brown (Yellow)
[2023-11-04 14:13] LABS: Add Urine Microscopic? NO; Protein Urine 1+ mg/dL (Negative)
[2023-11-04] MEDS: FLUOROURACIL 1,000 MG/20 ML VIAL 820 MG IV PUSH (15:17)
[2023-11-04 15:29] VITALS: BP 107/77
[2023-11-06] MEDS: HEPARIN SODIUM LOCK FLUSH 500 UNITS/5 ML SYRINGE IV PUSH (13:30)
[2023-11-06 13:31] VITALS: BP 109/74; PULSE 112; TEMP 36.8; O2SAT 99
--- NOTE | 2023-11-12 14:29 | PC.NURSE ---
Patient was here for a pump disconnect on 11/06/23.
--- NOTE | 2023-11-12 14:41 | PC.NURSE ---
Patient was here for a pump disconnect on 11/06/23.
== END 2023-11-11 15:52 ==
LOC: AMCINF 11:30
PROVIDERS: Visit Provider Internal Medicine Hematology & Oncology
DX: Z45.1 Encounter for adjustment and management of infusion pump (principal); C18.9 Malignant neoplasm of colon, unspecified; C78.7 Secondary malignant neoplasm of liver and intrahepatic bile duct; C78.89 Secondary malignant neoplasm of other digestive organs; D50.9 Iron deficiency anemia, unspecified; R18.0 Malignant ascites; R35.0 Frequency of micturition; R91.8 Other nonspecific abnormal finding of lung field; N39.0 Urinary tract infection, site not specified; R82.90 Unspecified abnormal findings in urine
CPT/HCPCS: 36415; 80047; 80053; 81001; 81003; 85025; 86850; 86900; 86901; 86923; 87077; 87086; 87088; 87181; 96365; 96367; 96368; 96375; 96411; 96413; 96415; 96416; 96417; 99212; 99213; A9270; G0463; J0640; J1100; J1200; J2469; J7050; J7060; J9190; J9263; Q0138; Q5118

== ENCOUNTER 2023-11-09 20:04 | Inpatient (IN) | payer BC, SELFPAY ==
--- NOTE | ~2023-11-09 | CT_ITS ---
EXAMINATION: CT abdomen pelvis wo con DATE: 11/09/2023 23:47 INDICATION: abd pain TECHNIQUE: Computed tomography (CT) of the abdomen and pelvis was performed without intravenous contr ast. Automated exposure control and iterative reconstruction technique were employed. The dose-length product was 327.69 mGy-cm. COMPARISON: None. FINDINGS: Lower thorax: Likely emphysematous change. Coronary artery calcification. Liver: Mild enlargement. Nodular liver border, may represent impressions from peritoneal implants. Biliary/Gallbladder: Gallbladder is normal. No bile duct dilation. Pancreas: No mass or duct dilation. Spleen: Normal. Adrenals:No mass. Kidneys: No suspicious mass, obstructing stone, or hydronephrosis. GI tract: Small hiatal hernia. Multiple loops of dilated and nondilated small bowel. Diffusely dilate d large bowel with large volume of colonic stool. Suggestion of a sigmoid mass. Appendix appears nond ilated, with chronic wall thickening. Scattered areas of wall thickening suspected throughout the col on. Mesentery/Peritoneum: Moderate volume free air. Small volume free fluid in the suggestion of peritone al/omental thickening. Retroperitoneum: No mass. Atherosclerotic abdominal aortic and/or arterial calcifications. Pelvis: Moderate bladder wall thickening, possibly due to outlet obstruction from prostatomegaly. Pro static calcification. Soft Tissues: Small fluid containing umbilical hernia. Mild body wall edema. Bones: No acute osseous finding. IMPRESSION: Findings concerning for bowel perforation, presumed site at the sigmoid mass, although this determina tion is limited without contrast. Multiple loops of dilated small bowel and diffusely dilated large bowel may reflect ileus or partial/ early obstruction. Moderate pneumoperitoneum. Mild ascites with the suggestion of peritoneal/omental thickening. Results reported telephonically to Dr. Stahl by Dr. Echeverria at 12:07 AM on 11/10/2023. Reviewed, dictated and finalized at location K. IMPRESSION: Findings concerning for bowel perforation, presumed site at the sigmoid mass, a lthough this determination is limited without contrast. Multiple loops of dilated small bowel and diffusely dilated large bowel may ref lect ileus or partial/early obstruction. Moderate pneumoperitoneum. Mild ascites with the suggestion of peritoneal/omental thickening. Results reported telephonically to Dr. Stahl by Dr. Echeverria at 12:07 AM on 11/10/2023.
--- NOTE | ~2023-11-09 | XR_ITS ---
EXAMINATION: XR chest 1V portable Exam Date/Time: 11/09/2023 21:35 CDT HISTORY: abd pain Comparison: 09/14/2023. RESULT: Lines, tubes, and devices: Right chest implanted port terminating in the SVC. Lungs and pleura: Clear. Cardiomediastinal silhouette: Stable. Other: No acute osseous or upper abdominal finding. IMPRESSION: No acute cardiopulmonary process. Reviewed, dictated and finalized at location K.
[2023-11-09 20:11] VITALS: BP 101/68; PULSE 129; RESP 18; TEMP 36.3; O2SAT 97
--- NOTE | 2023-11-09 20:16 | ECG_ITS ---
Test Date: 2023-11-09 20:22:18 Measurements Intervals Pyote Rate: 134 P: 84 TN: 145 QRS: 109 QRSD: 146 T: 55 QT: 346 QTc: 517 Interpretive Statements PROBABLE SINUS TACHYCARDIA RIGHT AXIS DEVIATION [QRS AXIS > 100] RIGHT BUNDLE BRANCH BLOCK [120+ ms QRS DURATION, UPRIGHT V1, 40+ ms S IN I/aVL/V4/V5/V6] SIGNIFICANT BASELINE ARTIFACT WHICH LIMITS INTERPRETATION No previous ECG available for comparison Electronically Signed On 11-10-2023 10:51:40 CDT by Cuong Bettencourt M.D.
[2023-11-09 20:51] LABS: Hematocrit 28.2 % (42.0-52.0); Hemoglobin 9.5 g/dL (14.0-18.0); Mean Corpuscular HGB Conc 33.7 g/dl (32-36); Mean Corpuscular Hemoglobin 27.8 pg (26-34); Mean Corpuscular Volume 82.5 fl (80-100); Mean Platelet Volume 8.8 fl (7.4-10.4); Platelet Count Result 309 k/mm3 (150-375); Red Blood Count 3.42 M/mm3 (4.6-6.20)
[2023-11-09 21:02] VITALS: BP 114/82; PULSE 115; RESP 18; O2SAT 96
[2023-11-09 21:09] LABS: Alanine Aminotransferase 18 U/L (6-50); Albumin Level 3.4 g/dL (3.5-5.1); Alkaline Phosphatase 83 U/L (38-126); Anion Gap 10 mmol/L (4-12); Aspartate Amino Transferase 32 U/L (17-59); Bilirubin,Total 1.8 mg/dL (0.2-1.3); Blood Urea Nitrogen 55 mg/dL (9-20); Calcium 8.9 mg/dL (8.4-10.2); Carbon Dioxide 19 mmol/L (22-30); Chloride 93 mmol/L (98-107); Estimated CRCL calculation 69 ml/min; Estimated Glomerular Filt Rate > 60; Glucose 130 mg/dL (65-110); Lipase 18 U/L (23-300); Potassium 3.8 mmol/L (3.4-5.0); Sodium 122 mmol/L (137-145)
--- NOTE | 2023-11-09 21:32 | ED.ABDPAIN ---
HPI - Abdominal Pain General Chief Complaint: Abdominal Pain Stated Complaint: abdominal pain, sob Time Seen by Provider: 11/09/23 21:18 Source: patient Mode of arrival: ambulatory Limitations: no limitations History of Present Illness HPI narrative: 63-year-old male who currently with metastatic colon cancer on chemotherapy. His last chemotherapy 5 days ago presenting for generalized weakness, difficulty tolerating p.o., diarrhea, abdominal pain. All the symptoms he has had for weeks but it got much worse after his chemotherapy. Says he gets the headache upset any time he tries to drink anything so he has not been drinking much at all. He is also being evaluated for fistula be doing: Bladder because he has not been urinating much at all recently. Related Data Home Medications Medication Instructions Recorded Confirmed Vitamin C 1 tab-cap PO DAILY 10/21/23 10/23/23 ferrous sulfate 1 tab-cap PO DAILY 10/21/23 10/23/23 Allergies Allergy/AdvReac Type Severity Reaction Status Date / Time No Known Allergies Allergy Verified 11/09/23 21:18 Review of Systems Review of Systems: All systems reviewed & are unremarkable except as noted in HPI and below PMFSH Past Medical History Medical History Colon cancer metastasized to multiple sites No pertinent past medical history Surgical History Surgical History History of inguinal hernia repair As an Social History Social History Social History: Surrogate medical decision maker: Orin Joeer, niece. Code status: Full code. Smoking packs per day: 0.5 Smoking cigarettes per day: 10.0 Years smoked: 50 Smoking pack-years: 25.00 Smoking status: Current some day smoker Tobacco type: cigarettes Alcohol intake: never Substance use: never Substance use type: does not use Do You Feel Safe in your Home?: Yes Lack of Transportation: No Lack of Food: Never True Current Housing: I Have Housing Concerned About Future Housing: No Difficulty Paying Gas/Electric Bills: No Difficulty Paying for Meds: No Currently Unemployed: No Education: High School Diploma/GED Difficulty w/ Childcare or Family Care: No Living arrangements: alone 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 Spiritual care concerns: No Exam Narrative: Constitutional: ill-appearing, no acute distress , cachectic, Head: Atraumatic, no deformities. Eyes: Pupils equal, round, and reactive to light. Neck: Supple, no tracheal deviation, no JVD. ENMT: Mucous membranes moist Cardiovascular: S1, S2 auscultated. No murmurs, rubs, or gallops. No S3/S4. Normal Distal pulses. No peripheral edema. Respiratory: Lung sounds equal. No wheezes, rales, or rhonchi. Gastrointestinal: Abdomen was soft, mildly diffusely tender. No rebound or guarding. Genitourinary: Deferred Musculoskeletal: Normal muscle tone and bulk. No obvious deformities or tenderness over extremities. Skin: No rashes. Neurological: Strength 5/5 in extremities. Cranial nerves I-XII grossly intact. Distal sensation intact. Mental Status: Awake, alert and oriented x3. Follows commands Course Vital Signs Vital signs: Vital Signs Temperature 36.3 C L 11/09/23 20:11 Pulse Rate 129 H 11/09/23 20:11 Respiratory Rate 18 11/09/23 20:11 Blood Pressure 101/68 11/09/23 20:11 Pulse Oximetry 97 11/09/23 20:11 Oxygen Delivery Room Air 11/09/23 20:11 Temperature 36.3 C L 11/09/23 20:11 Pulse Rate 107 H 11/10/23 00:37 Respiratory Rate 24 H 11/10/23 00:37 Blood Pressure 117/87 11/10/23 00:37 Pulse Oximetry 97 11/10/23 00:37 Oxygen Delivery Room Air 11/09/23 20:11 MDM - Abdominal Pain MDM Narrative Medical decision making narrative: 63-year-old male presenting after generali
[2023-11-09 21:39] LABS: White Blood Count 1.6 K/mm3 (4.5-10.0)
[2023-11-09 21:46] LABS: Band Neutrophils Percent 9 % (0-6); Lymphocytes Absolute Manual 0.64 K/mm3 (1.1-4.5); Monocytes Absolute Manual 0.03 K/mm3 (0.1-0.90); Monocytes Percent Manual 2 % (3-9); Neutrophils Absolute Manual 0.92 K/mm3 (1.3-6.7); Neutrophils Percent Manual 49 % (46-73); Platelet Estimate Adequate (Adequate); Schistocytes None Seen; Total Cells Counted 100
[2023-11-09 21:47] LABS: Anisocytosis 3+
[2023-11-09 21:53] LABS: Troponin I < 0.012 ng/mL (0.000-0.034)
[2023-11-09 22:30] VITALS: BP 109/87; PULSE 121; RESP 29; O2SAT 96
[2023-11-09 22:31] LABS: Troponin I < 0.012 ng/mL (0.000-0.034)
[2023-11-09] MEDS: ONDANSETRON INJ 4 MG/2 ML VIAL IV PUSH (22:31)
[2023-11-09] MEDS: CEFEPIME 1 GM/NS 50 ML 1 GM/50 ML BAG IVPB (22:31)
[2023-11-09] MEDS: SODIUM CHLORIDE 0.9% IV 1,000 ML 999 ML IV CONT (22:31)
[2023-11-09] MEDS: fentaNYL CITRATE INJ (*CRX) 100 MCG/2 ML VIAL 50 MCG IV PUSH (23:31)
[2023-11-09] MEDS: VANCOMYCIN 1,750 MG/NS 500 ML 1,750 MG/500 ML BAG 250 MG IVPB (23:32)
[2023-11-10 00:37] VITALS: BP 117/87; PULSE 107; RESP 24; O2SAT 97
--- NOTE | 2023-11-10 01:25 | PM.IMHP ---
H&P: HPI History of Present Illness Date/Time: 11/10/23 01:25 Chief Complaint: generalized weakness Narrative: This is a 63-year-old male with past medical history significant for end-stage colon cancer, patient had his last chemotherapy treatment 4 days ago comes to the hospital due to generalized weakness, abdominal pain, abdominal distention. preliminary workup was significant for CT of abdomen and pelvis with pneumoperitoneum likely perforated colon after lengthy discussion with emergency room physician and a was decided that patient does not want any further invasive treatment and comfort care and hospice only. EXAMINATION: XR chest 1V portable Exam Date/Time: 11/09/2023 21:35 CDT HISTORY: abd pain Comparison: 09/14/2023. RESULT: Lines, tubes, and devices: Right chest implanted port terminating in the SVC. Lungs and pleura: Clear. Cardiomediastinal silhouette: Stable. Other: No acute osseous or upper abdominal finding. IMPRESSION: No acute cardiopulmonary process. EXAMINATION: CT abdomen pelvis wo con DATE: 11/09/2023 23:47 INDICATION: abd pain TECHNIQUE: Computed tomography (CT) of the abdomen and pelvis was performed without intravenous contrast. Automated exposure control and iterative reconstruction technique were employed. The dose-length product was 327.69 mGy-cm. COMPARISON: None. FINDINGS: Lower thorax: Likely emphysematous change. Coronary artery calcification. Liver: Mild enlargement. Nodular liver border, may represent impressions from peritoneal implants. Biliary/Gallbladder: Gallbladder is normal. No bile duct dilation. Pancreas: No mass or duct dilation. Spleen: Normal. Adrenals:No mass. Kidneys: No suspicious mass, obstructing stone, or hydronephrosis. GI tract: Small hiatal hernia. Multiple loops of dilated and nondilated small bowel. Diffusely dilated large bowel with large volume of colonic stool. Suggestion of a sigmoid mass. Appendix appears nondilated, with chronic wall thickening. Scattered areas of wall thickening suspected throughout the colon. Mesentery/Peritoneum: Moderate volume free air. Small volume free fluid in the suggestion of peritoneal/omental thickening. Retroperitoneum: No mass. Atherosclerotic abdominal aortic and/or arterial calcifications. Pelvis: Moderate bladder wall thickening, possibly due to outlet obstruction from prostatomegaly. Prostatic calcification. Soft Tissues: Small fluid containing umbilical hernia. Mild body wall edema. Bones: No acute osseous finding. IMPRESSION: Findings concerning for bowel perforation, presumed site at the sigmoid mass, although this determination is limited without contrast. Multiple loops of dilated small bowel and diffusely dilated large bowel may reflect ileus or partial/early obstruction. Moderate pneumoperitoneum. Mild ascites with the suggestion of peritoneal/omental thickening. Review of Systems Review of Systems: Generalized weakness, abdominal distention, abdominal pain, poor per orally intake PMFSH Past Medical History Medical History Colon cancer metastasized to multiple sites No pertinent past medical history Surgical History Surgical History History of inguinal hernia repair As an Social History Social History (Updated 11/10/23 @ 16:37 by Filemon Nicole MD) Social History: Surrogate medical decision maker: Orin Christensen, niece. Code status: DNR Smoking packs per day: 0.3 Smoking cigarettes per day: 6.0 Years smoked: 50 Smoking pack-years: 15.00 Smoking status: Current every day smoker Tobacco type: cigarettes Alcohol intake: never Substance use: never Substance use type: does not use Do You Feel Safe in your Home?: Yes Lack of Transportation: No Lack of Food: Never True Current Housing: I Have Housing Concerned Abou
[2023-11-10] MEDS: fentaNYL CITRATE INJ (*CRX) 100 MCG/2 ML VIAL 50 MCG IV PUSH ×4 (01:33→11:41)
[2023-11-10] MEDS: SODIUM CHLORIDE 0.9% IV 1,000 ML 125 ML IV CONT ×2 (02:50→09:52)
[2023-11-10 02:53] VITALS: BP 108/67; PULSE 100; RESP 20; TEMP 36.2; O2SAT 93
--- NOTE | 2023-11-10 02:57 | ADMGEN ---
This patient, Rudy Mejia Jr., was admitted to [facility] Surg Room 302-01. Patient/family oriented to hospital policies and general routines including ID bracelet, bed and alarms, visiting hours, pain management, procedures, bathroom and other care routines, personal items, smoking policy, room service/diet, and visiting hours. Information on how to activate the Rapid Response Team has been discussed. Patient/Family are encouraged to report perceived risks to care and to ask questions if they do not understand what they are told or what they should do.
[2023-11-10 06:50] LABS: Estimated CRCL calculation 62 ml/min; Estimated Glomerular Filt Rate > 60
[2023-11-10 07:54] VITALS: O2SAT 96
--- NOTE | 2023-11-10 08:43 | PM.IMPN ---
Progress Note: A&P Assessment and Plan (1) Colon cancer metastasized to multiple sites: Code(s): C18.9 - Malignant neoplasm of colon, unspecified Status: Acute (2) Perforated bowel: Code(s): K63.1 - Perforation of intestine (nontraumatic) Status: Acute (3) Sepsis: Qualifiers: Sepsis acute organ dysfunction status: without acute organ dysfunction Sepsis type: sepsis due to unspecified organism Qualified Code(s): A41.9 - Sepsis, unspecified organism Code(s): A41.9 - Sepsis, unspecified organism Status: Acute (4) Protein-calorie malnutrition, severe: Code(s): E43 - Unspecified severe protein-calorie malnutrition Status: Acute Plan This is a 63-year-old male with past medical history significant for end-stage colon cancer, patient had his last chemotherapy treatment 4 days ago comes to the hospital due to generalized weakness, abdominal pain, abdominal distention. preliminary workup was significant for CT of abdomen and pelvis with pneumoperitoneum likely perforated colon. Patient does not want any further invasive treatment and comfort care and hospice only. Time Spent With Patient Time with patient: 25 - 35 minutes Subjective Date/time seen: 11/10/23 08:43 Interval history: 63-year-old male with past medical history significant for end-stage colon cancer, patient had his last chemotherapy treatment 5 days ago comes to the hospital due to generalized weakness, abdominal pain, abdominal distention. preliminary workup was significant for CT of abdomen and pelvis with pneumoperitoneum likely perforated colon. Per hospitalist note- patient does not want any further invasive treatment and comfort care and hospice only. 11/09- pt seen and examined today- Review of Systems Review of Systems: Generalized weakness, abdominal distention, abdominal pain, poor per orally intake Exam Narrative: laying in a stretcher Const: General: comfortable, no acute distress, well developed, alert, awake, ill appearing, cachectic and other ( terminal looking) Nutritional Appearance: cachectic and other ( cachectic) Orientation/consciousness: patient oriented x3 Other: generalized pallor HENMT: Head: normal to inspection, normocephalic and atraumatic Ears: hearing grossly normal bilaterally Face/Nose/Sinus: normal facial exam Face and sinus: normal facial exam Other: bitemporal muscle wasting Eyes: General: appearance normal, both eyes and all related structures Pupils: Equal, round and reactive pupils present EOM: EOMs intact bilaterally Neck: Neck: full ROM, no lymphadenopathy and no JVD Thyroid: thyroid normal Lymphatic: no lymphadenopathy noted Resp: Effort & Inspection: normal respiratory effort and able to speak in complete sentences Auscultation: clear to auscultation bilaterally Cardio: Jugular venous distension: no JVD Rate: regular rate Rhythm: regular rhythm Heart sounds: S1 normal heart sound present and S2 normal heart sound present GI: Inspection: distended, no visible herniation and No caput medusae present : General: Yes deferred Skin: Rashes: no rashes Wounds: no wounds Neuro: General: patient oriented x3, CN's II-XI intact bilaterally and Unable to assess gait Cranial nerves: Yes CN's II-XII intact bilaterally and Yes Equal, round and reactive pupils present Cognition (Neuro): normal cognition Speech: normal speech Gait exam (Neuro): Unable to assess gait Motor exam (neuro): 5/5 motor strength present throughout Extrem: General: normal to inspection, full ROM, no joint enlargement and no pedal edema Other: pedal edema Objective Data Vital Signs Vital Signs: Vital Signs - 24 hr 11/09/23 20:11 11/09/23 21:02 11/09/23 22:30 Temperature 97.4 F L Pulse Rate 129 H 115 H 121 H Respiratory Rate 18 18 29 H Blood Pressure 101/68 114/82 109/87 Pulse Oximetry 97 96 96 Oxygen Delivery Room Air Fraction of
[2023-11-10] MEDS: chlorproMAZINE HCL 25 MG TABLET PO (10:45)
--- NOTE | 2023-11-10 11:08 | PCDIET ---
Pt is NPO, comfort care with plans to move forward with hospice care. No nutrition recommendations at this time.
--- NOTE | 2023-11-10 12:46 | PM.DS ---
DS: Admitting Diagnosis Discharge Date 11/09 Admitting Diagnosis metastatic disease- end stage colon ca DS: Discharge Diagnosis Discharge Diagnosis (1) Colon cancer metastasized to multiple sites: Code(s): C18.9 - Malignant neoplasm of colon, unspecified Status: Acute (2) Perforated bowel: Code(s): K63.1 - Perforation of intestine (nontraumatic) Status: Acute (3) Sepsis: Qualifiers: Sepsis acute organ dysfunction status: without acute organ dysfunction Sepsis type: sepsis due to unspecified organism Qualified Code(s): A41.9 - Sepsis, unspecified organism Code(s): A41.9 - Sepsis, unspecified organism Status: Acute (4) Protein-calorie malnutrition, severe: Code(s): E43 - Unspecified severe protein-calorie malnutrition Status: Acute Plan dinal dx: Malignant neoplasm of colon This is a 63-year-old male with past medical history significant for end-stage colon cancer, patient had his last chemotherapy treatment 4 days ago comes to the hospital due to generalized weakness, abdominal pain, abdominal distention. preliminary workup was significant for CT of abdomen and pelvis with pneumoperitoneum likely perforated colon. Patient does not want any further invasive treatment and comfort care and hospice only. DS: Summary Hospital Course Hospital Course: see above Status at Discharge Functional status at discharge: bed bound Overall status at discharge: other Time Spent with Patient Time attestation: Total time spent providing and/or coordinating discharge services: Time spent: Less than 30 minutes Exam Narrative: laying in a stretcher Const: General: comfortable, no acute distress, well developed, ill appearing, cachectic and other ( terminal looking) Nutritional Appearance: cachectic and other ( cachectic) Orientation/consciousness: patient oriented x3 Other: generalized pallor- drowsy HENMT: Head: normal to inspection, normocephalic and atraumatic Ears: hearing grossly normal bilaterally Face/Nose/Sinus: normal facial exam Face and sinus: normal facial exam Other: bitemporal muscle wasting Eyes: General: appearance normal, both eyes and all related structures Pupils: Equal, round and reactive pupils present EOM: EOMs intact bilaterally Neck: Neck: full ROM Resp: Effort & Inspection: normal respiratory effort and able to speak in complete sentences Auscultation: clear to auscultation bilaterally Cardio: Rate: regular rate Rhythm: regular rhythm GI: Inspection: distended, no visible herniation and No caput medusae present : General: Yes deferred Skin: Rashes: no rashes Wounds: no wounds Neuro: General: patient oriented x3 and CN's II-XI intact bilaterally Cognition (Neuro): normal cognition Speech: normal speech Gait exam (Neuro): Unable to assess gait Extrem: General: normal to inspection, full ROM, no joint enlargement and no pedal edema Other: pedal edema DS: Data Data Completed and Pending Labs on day of discharge: Labs from last 24 hours 11/10/23 11/09/23 11/09/23 06:25 21:58 20:32 WBC 1.6 L* RBC 3.42 L Hgb 9.5 L Hct 28.2 L MCV 82.5 MCH 27.8 MCHC 33.7 RDW 21.0 H Plt Count 309 MPV 8.8 Immature Gran % (Auto) Not Reportable Neut % (Auto) Not Reportable Lymph % (Auto) Not Reportable [place] % (Auto) Not Reportable Eos % (Auto) Not Reportable Baso % (Auto) Not Reportable Lymph # (Auto) Not Reportable [place] # (Auto) Not Reportable Eos # (Auto) Not Reportable Baso # (Auto) Not Reportable Abs Immat Gran (auto) Not Reportable Absolute Neuts (auto) Not Reportable Absolute Nucleated RBC Not Reportable Total Counted 100 Neutrophils % (Manual) 49 Band Neutrophils % 9 H Lymphocytes % (Manual) 40.0 Monocytes % (Manual) 2 L Nucleated RBC % Not Reportable Abs Neuts (Manual) 0.92 L Abs Lymphs (Manual) 0.64 L
--- NOTE | 2023-11-10 12:59 | PC.NURSE ---
pt transitioning in to inpatient hospice status, he will remain inpatient and receive a new registration number per hospital procedure
== END 2023-11-10 12:47 | disposition hospice, home (50) | DRG 871 ==
LOC: ANHED 11-10 01:38 → ANH3MEDSUR 11-10 02:23
PROVIDERS: Student in an Organized Health Care Education/Training Program; Admitting Provider Internal Medicine; Emergency Provider Emergency Medicine; Visit Provider Nurse Practitioner
DX: A41.9 Sepsis, unspecified organism (principal); E43 Unspecified severe protein-calorie malnutrition; K63.1 Perforation of intestine (nontraumatic); C18.9 Malignant neoplasm of colon, unspecified; Z68.1 Body mass index [BMI] 19.9 or less, adult; C79.9 Secondary malignant neoplasm of unspecified site; F17.210 Nicotine dependence, cigarettes, uncomplicated; Z51.5 Encounter for palliative care
CPT/HCPCS: 36415; 71045; 74176; 80053; 82565; 83690; 84484; 85025; 87040; 93005; 96365; 96367; 96375; 99285; A9270; J0692; J2405; J3010; J3370; J7030

== ENCOUNTER 2023-11-10 12:48 | HOS | payer OTHER, BC, SELFPAY ==
[2023-11-10] MEDS: MORPHINE SULFATE (*CRX) 2 MG/ML INJ 4 MG IV PUSH ×3 (14:05→23:31)
[2023-11-10 14:20] VITALS: PULSE 102; RESP 18
[2023-11-10] MEDS: MORPHINE SULFATE INJ (*CRX) 50 MG in SODIUM CHLORIDE 0.9% IV 95 ML IV CONT (14:20)
[2023-11-10 15:02] VITALS: BP 92/60; PULSE 70; RESP 20; TEMP 35.7; O2SAT 93
--- NOTE | 2023-11-10 16:31 | PM.IMHP ---
H&P: HPI History of Present Illness Date/Time: 11/10/23 16:31 Chief Complaint: uncontrolled pain Narrative: This unfortunate 63-year-old gentleman with known metastatic colon cancer presented the emergency department on November 08 due to sing abdominal pain. Pain was 10/10 and diffuse. He had received a chemotherapy treatment 5 days prior to admission. He had no fevers or chills. Imaging revealed findings on CT consistent with pneumo. Likely due to perforated sigmoid this. He was admitted for broad-spectrum and he opted against further intervention shows comfort care on inpatient hospice service. He has been we previous experience nausea and some diarrhea. Currently he is bedbound and making very little urine but is incontinent. After initiation of morphine at 2 milligrams/hour his pain is well controlled. Review of Systems Review of Systems: ROS unobtainable: Yes unobtainable due to medical condition PMFSH Past Medical History Medical History Colon cancer metastasized to multiple sites No pertinent past medical history Surgical History Surgical History History of inguinal hernia repair As an Social History Social History (Updated 11/10/23 @ 16:37 by Filemon Nicole MD) Social History: Surrogate medical decision maker: madison Bond. Code status: DNR Smoking packs per day: 0.3 Smoking cigarettes per day: 6.0 Years smoked: 50 Smoking pack-years: 15.00 Smoking status: Current every day smoker Tobacco type: cigarettes Alcohol intake: never Substance use: never Substance use type: does not use Do You Feel Safe in your Home?: Yes Lack of Transportation: No Lack of Food: Never True Current Housing: I Have Housing Concerned About Future Housing: No Difficulty Paying Gas/Electric Bills: No Difficulty Paying for Meds: No Currently Unemployed: No Education: High School Diploma/GED Difficulty w/ Childcare or Family Care: No Living arrangements: alone 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 Spiritual care concerns: No Meds Home Medications and Allergies Home Medications Medication Instructions Recorded Confirmed Type Vitamin C 1 tab-cap PO DAILY 10/21/23 11/10/23 History ferrous sulfate 1 tab-cap PO DAILY 10/21/23 11/10/23 History Allergies Allergy/AdvReac Type Severity Reaction Status Date / Time No Known Allergies Allergy Verified 11/09/23 21:18 Vital Signs Vital Signs - 24 hr 11/10/23 14:20 11/10/23 15:02 Temperature 96.2 F L Pulse Rate 102 H 70 Respiratory Rate 18 20 Blood Pressure 92/60 L Pulse Oximetry 93 Exam Narrative: Gentleman who appears much older than his stated age of 63 lying comfortably in his hospital bed. Sclerae nonicteric. Oral mucosa dry. Neck without JVD. Chest clear to auscultation with mild tachypnea. Heart normal S1 and S2 with regular rate and audible murmur. Abdomen distended firm no audible bowel sounds and no obvious tenderness. Extremities without edema. Musculoskeletal with diffuse muscle wasting but no gross deformities to visual inspection otherwise. Neurologic cranial nerves intact to inspection. Psychiatric drowsy but arouses to voice or touch. Oriented to person. Assessment and Plan Assessment and plan (1) Palliative care encounter: Code(s): Z51.5 - Encounter for palliative care Status: Acute Assessment and Plan: Meets inpatient hospice criteria due to requiring continuous IV morphine for control of pain. (2) Colon cancer metastasized to multiple sites: Code(s): C18.9 - Malignant neoplasm of colon, unspecified Status: Acute (3) Perforated bowel: Code(s): K63.1 - Perforation of intestine (nontraumatic) Status: Acute (4) Sepsis: Qualifiers: Se
[2023-11-10] MEDS: PROCHLORPERAZINE EDISYLATE 10 MG/2 ML VIAL IV PUSH ×2 (17:31→23:29)
[2023-11-10 20:25] VITALS: BP 88/70; PULSE 124; RESP 20; TEMP 36.1; O2SAT 93
[2023-11-11 03:16] VITALS: O2SAT 93
[2023-11-11] MEDS: PROCHLORPERAZINE EDISYLATE 10 MG/2 ML VIAL IV PUSH ×3 (05:51→17:58)
[2023-11-11 07:37] VITALS: BP 77/55; PULSE 135; RESP 16; TEMP 37.3; O2SAT 90
[2023-11-11 08:00] VITALS: PULSE 132; RESP 16; O2SAT 90
--- NOTE | 2023-11-11 09:16 | PM.IMPN ---
Progress Note: A&P Assessment and Plan (1) Palliative care encounter: Code(s): Z51.5 - Encounter for palliative care Status: Acute Assessment and Plan: Meets inpatient hospice criteria due to requiring continuous IV morphine for control of pain. (2) Colon cancer metastasized to multiple sites: Code(s): C18.9 - Malignant neoplasm of colon, unspecified Status: Acute (3) Perforated bowel: Code(s): K63.1 - Perforation of intestine (nontraumatic) Status: Acute (4) Sepsis: Qualifiers: Sepsis acute organ dysfunction status: without acute organ dysfunction Sepsis type: sepsis due to unspecified organism Qualified Code(s): A41.9 - Sepsis, unspecified organism Code(s): A41.9 - Sepsis, unspecified organism Status: Acute (5) Protein-calorie malnutrition, severe: Code(s): E43 - Unspecified severe protein-calorie malnutrition Status: Acute Subjective Date/time seen: 11/11/23 09:16 Interval history: Remains comfortable w/o significant hiccups on current regimen. Review of Systems Review of Systems: ROS unobtainable: Yes unobtainable due to medical condition Exam Narrative: Gentleman who appears much older than his stated age of 63 lying comfortably in his hospital bed. Sclerae nonicteric. Oral mucosa dry. Neck without JVD. Chest clear to auscultation with mild tachypnea. Heart normal S1 and S2 with regular rate and audible murmur. Abdomen distended firm no audible bowel sounds and no obvious tenderness. Extremities without edema. Musculoskeletal with diffuse muscle wasting but no gross deformities to visual inspection otherwise. Neurologic cranial nerves intact to inspection. Psychiatric minimally responsive to verbal and tactile stimuli. Objective Data Vital Signs Vital Signs: Vital Signs - 24 hr 11/10/23 14:20 11/10/23 15:02 11/10/23 14:30 Temperature 96.2 F L Pulse Rate 102 H 70 Respiratory Rate 18 20 Blood Pressure 92/60 L Pulse Oximetry 93 Oxygen Delivery Room Air Oxygen Flow Rate 11/10/23 20:25 11/10/23 20:00 11/11/23 03:16 Temperature 96.9 F L Pulse Rate 124 H Respiratory Rate 20 Blood Pressure 88/70 L Pulse Oximetry 93 93 Oxygen Delivery Room Air Nasal Cannula Oxygen Flow Rate 2 11/11/23 07:37 Temperature 99.1 F Pulse Rate 135 H Respiratory Rate 16 Blood Pressure 77/55 L Pulse Oximetry 90 Oxygen Delivery Oxygen Flow Rate Meds/Results Medications: Active Medications Generic Name Dose Route Start Last Admin Trade Name Freq PRN Reason Stop Dose Admin Artificial Tears 1 drop 11/10/23 13:40 Artificial Tears Ophth Soln 15 Ml Bottle EACH EYE Q12H PRN Dry Eye(s) Bisacodyl 10 mg 11/10/23 13:40 Bisacodyl 10 Mg Suppository RECTAL DAILY PRN Constipation Glycopyrrolate 0.1 mg 11/10/23 13:40 Glycopyrrolate Inj (*Sp) 0.2 Mg/Ml Vial IV PUSH Q4H PRN EXCESS secretions Morphine Sulfate 50 mg/ Sodium 100 mls @ 4 mls/hr 11/10/23 13:40 11/10/23 14:20 Chloride IV CONT 2 mg/hr .Q24H KAT 4 mls/hr Administration 2 MG/HR Lorazepam 1 mg 11/10/23 13:40 Lorazepam Inj (*Crx) 2 Mg/Ml Vial IV PUSH Q4H PRN RESTLESSNESS Morphine Sulfate 4 mg 11/10/23 13:40 11/10/23 23:31 Morphine Sulfate (*Crx) 2 Mg/Ml Inj IV PUSH 4 mg Q2H PRN Administration Pain/DYSPNEA Prochlorperazine Edisylate 10 mg 11/10/23 18:00 11/11/23 05:51 Prochlorperazine Edisylate 10 Mg/2 Ml Vial IV PUSH 10 mg Q6HR KAT Administration
[2023-11-11 10:47] VITALS: PULSE 132; RESP 16
[2023-11-11] MEDS: MORPHINE SULFATE INJ (*CRX) 50 MG in SODIUM CHLORIDE 0.9% IV 95 ML IV CONT (10:47)
[2023-11-11 20:00] VITALS: BP 74/51; PULSE 128; RESP 12; TEMP 36.7; O2SAT 90
[2023-11-12] MEDS: MORPHINE SULFATE (*CRX) 2 MG/ML INJ 4 MG IV PUSH ×2 (00:09→03:28)
[2023-11-12] MEDS: PROCHLORPERAZINE EDISYLATE 10 MG/2 ML VIAL IV PUSH (00:10)
[2023-11-12] MEDS: LORazepam INJ (*CRX) 2 MG/ML VIAL 1 MG IV PUSH (01:37)
--- NOTE | 2023-11-12 09:50 | PC.NURSE ---
Pt taken to [facility] at 09, [facility] home notified [phone] to come retrieve patient. Security notified.
--- NOTE | 2023-11-12 13:38 | P.DN_ITS ---
Discharge Summary Date and Time Date of : 11/12/23 Time of : 05:10 Provider Pronounced By: 2 RNs Name of First RN That Pronounced: Nicolasa Obrien Name of Second RN That Pronounced: Arben Lora Probable Cause of Probable Cause of : perforated bowel with peritonitis and sepsis due to adenocarcinoma of the colon Summary Hospital Course: Admitted to inpatient hospice service due to uncontrolled abdominal pain. Medications were titrated to comfort. Mr. Mejia peacefully. Additional Data Confirmation of as documented by pronouncing clinician: Pupillary Reflex, Palpable Pulses, Response to Stimuli, Heart Tones and Breath Sounds Name of Provider Notified: Corey Time Provider Notified: 05:15 Draw Bench Operator Helper Notified: Yes Date [facility] Notified of : 11/12/23 Time [facility] Notified of : 05:20
== END 2023-11-12 05:10 | disposition expired | DRG 951 ==
PROVIDERS: Admitting Provider Internal Medicine; Visit Provider Internal Medicine
DX: Z51.5 Encounter for palliative care (principal); A41.9 Sepsis, unspecified organism; K63.1 Perforation of intestine (nontraumatic); E43 Unspecified severe protein-calorie malnutrition; C18.9 Malignant neoplasm of colon, unspecified; F17.210 Nicotine dependence, cigarettes, uncomplicated; Z66 Do not resuscitate
CPT/HCPCS: A9270; J0780; J2060; J2270